=== PATIENT | female | born 1990 | race Caucasian/White ===

== ENCOUNTER 2017-07-21 20:07 | Emergency (ER) | payer OTHER ==
[~2017-07-21] VITALS: Ht 167.6 cm; Wt 55.8 kg
[~2017-07-21 20:07] MED LIST: AMOX500; AZIT250 PO; BCP; BIRTH CONTROL PILLS; CLOM50A PO; CLOT1TC TOP; CODACEE120 PO; DIVA250EC PO; DIVA250ER PO; DOCU100 PO; Doc-Q-Lace100 MG PO; IBUP800 PO; MEDR150I; NAPR500 PO; PERP8 PO; PROM25 PO; QUET100 PO; QUET25 PO; QUET300 PO; RISP1 PO
[2017-07-21] MEDS ORDERED: Verotin-Gr Cap1 EACH PO (21:30)
[2018-04-25] MEDS ORDERED: NICOTINE1 EACH TD (14:39)
[2018-04-25] MEDS ORDERED: Norethindrone0.35 MG PO (14:39)
[2018-04-25] MEDS ORDERED: SERT25 (14:39)
== END 2017-07-21 21:55 | disposition home or self-care (01) ==
LOC: ER 20:07
DX: L74.0 Miliaria rubra (principal); Z88.0 Allergy status to penicillin; F25.9 Schizoaffective disorder, unspecified; Z87.891 Personal history of nicotine dependence
CPT/HCPCS: 99282

== ENCOUNTER → 2017-09-01 | Outpatient (CLI) | payer OTHER ==
[~2017-09-01] MED LIST changes: +Verotin-Gr Cap1 EACH PO
[2017-09-02 10:03] LABS: Source Vaginal/Cervical
== END | disposition home or self-care (01) ==
LOC: LAB SHORT 14:48 → LAB 14:48
PROVIDERS: Advanced Practice Midwife
DX: Z36.89 Encounter for other specified antenatal screening (principal)
CPT/HCPCS: 87491; 87591; 87661; G0123

== ENCOUNTER → 2017-10-04 | Outpatient (CLI) | payer OTHER | END | disposition home or self-care (01) | LOC: LAB SHORT 15:38 → LAB 15:38 | DX: R30.0 Dysuria (principal) | CPT/HCPCS: 87086 ==

== ENCOUNTER 2017-12-06 03:26 | Day surgery (SDC) | payer OTHER ==
[~2017-12-06] VITALS: Ht 167.6 cm; Wt 59.4 kg
== END 2017-12-06 14:25 | disposition home or self-care (01) ==
LOC: ER 03:26 → BC 04:05 → ER 04:11 → BC 04:11 → OBS 04:11 → BC 04:11 → OBS 14:25 → BC 14:25
DX: O9A.313 Physical abuse complicating pregnancy, third trimester (principal); S30.1XXA Contusion of abdominal wall, initial encounter; S40.022A Contusion of left upper arm, initial encounter; S01.511A Laceration without foreign body of lip, initial encounter; Y04.8XXA Assault by other bodily force, initial encounter; Y92.029 Unspecified place in mobile home as the place of occurrence of the external cause; O99.343 Other mental disorders complicating pregnancy, third trimester; Z88.0 Allergy status to penicillin; F25.0 Schizoaffective disorder, bipolar type; O99.333 Smoking (tobacco) complicating pregnancy, third trimester; F17.210 Nicotine dependence, cigarettes, uncomplicated; Z3A.29 29 weeks gestation of pregnancy
CPT/HCPCS: 59025; 81003; 99285-25

== ENCOUNTER 2018-02-05 22:15 | Inpatient (IN) | payer OTHER ==
[~2018-02-05] VITALS: Ht 162.6 cm; Wt 61.4 kg
[2018-02-06 06:19] LABS: BASOPHILS ABSOLUTE AUTO 0.04 K/mm3 (0.00-0.23); BASOPHILS PERCENT AUTO 0 % (0-2); EOSINOPHILS ABSOLUTE AUTO 0.01 K/mm3 (0.00-0.68); EOSINOPHILS PERCENT AUTO 0 % (0-6); Hematocrit 36.4 % (33.0-51.0); Hemoglobin 12.4 g/dL (11.5-16.0); IMMATURE GRAN ABSOLUTE AUTO 0.09 K/mm3 (0.00-0.10); IMMATURE GRAN PERCENT AUTO 1 % (0-1); LYMPHOCYTES ABSOLUTE AUTO 1.38 K/mm3 (0.84-5.20); LYMPHOCYTES PERCENT AUTO 7 % (21-46); MONOCYTES PERCENT AUTO 5 % (4-13); Mean Corpuscular HGB 29.8 pg (26.0-34.0); Mean Corpuscular HGB Conc 34.1 g/dL (31.5-36.5); Mean Corpuscular Volume 88 fL (80-100); Mean Platelet Volume 10.5 fL (9.1-12.4); NEUTROPHILS ABSOLUTE AUTO 16.51 K/mm3 (1.96-9.15); NEUTROPHILS PERCENT AUTO 87 % (41-73); Platelet Count 177 K/mm3 (150-400); RDW Coefficient Variation 13.3 % (11.7-14.2); RDW Standard Deviation 42.3 fL (35.1-46.3); Red Blood Cell Count 4.16 M/mm3 (3.80-5.20); White Blood Cell Count 19.03 K/mm3 (4.00-11.30)
[2018-02-07] MEDS ORDERED: IBUP800 PO (14:53)
== END 2018-02-07 16:40 | disposition home or self-care (01) | DRG 775 ==
LOC: BC 22:15
PROVIDERS: Nurse Practitioner Obstetrics & Gynecology
PROC: 10E0XZZ Delivery of Products of Conception, External Approach (ICD-10-PCS; principal; 2018-02-06)
PROC: 0HQ9XZZ Repair Perineum Skin, External Approach (ICD-10-PCS; 2018-02-06)
PROC: 3E0234Z Introduction of Serum, Toxoid and Vaccine into Muscle, Percutaneous Approach (ICD-10-PCS; 2018-02-07)
DX: O99.334 Smoking (tobacco) complicating childbirth (principal); F17.200 Nicotine dependence, unspecified, uncomplicated; O70.0 First degree perineal laceration during delivery; Z3A.39 39 weeks gestation of pregnancy; Z37.0 Single live birth; Z88.0 Allergy status to penicillin; Z23 Encounter for immunization
CPT/HCPCS: 36415; 85025; 90471; 90707; J1885; J2210; J2590; J7120

== ENCOUNTER → 2018-02-23 | Outpatient (CLI) | payer OTHER | END | disposition home or self-care (01) | LOC: LAB SHORT 17:25 → LAB 17:25 | DX: N89.8 Other specified noninflammatory disorders of vagina (principal) | CPT/HCPCS: 87070; 87205 ==

== ENCOUNTER 2019-02-12 03:36 | Emergency (ER) | payer OTHER ==
[~2019-02-12] VITALS: Ht 167.6 cm; Wt 58.1 kg
[~2019-02-12 03:36] MED LIST changes: +NICOTINE1 EACH TD; +Norethindrone0.35 MG PO; +SERT25
[2019-02-12 04:08] LABS: Source, Urine Clean Catch
[2019-02-12 04:11] LABS: Bilirubin, Urine Neg (Neg); Blood, Urine Neg (Neg); Glucose Qualitative, Urine Neg (Neg); Ketones, Urine Neg (Neg); Leukocyte Esterase, Urine 2+ (Neg); Nitrite, Urine Neg (Neg); Protein, Urine Neg (Neg); Specific Gravity, Urine 1.005 (1.003-1.022); Urobilinogen, Urine NORM (Normal)
[2019-02-12 04:12] LABS: Appearance, Urine Clear (Clear); Color, Urine Yellow (P-Yellow)
[2019-02-12 04:17] LABS: Bacteria Few /hpf; Red Blood Cells, Urine Not Seen /hpf (0-2); Squamous Epithelial Cells Few /hpf (Few); Yeast/Fungi Urine Few /hpf
[2019-02-12 04:59] LABS: BASOPHILS ABSOLUTE AUTO 0.03 K/mm3 (0.00-0.23); BASOPHILS PERCENT AUTO 0 % (0-2); EOSINOPHILS PERCENT AUTO 3 % (0-6); Hematocrit 40.4 % (33.0-51.0); Hemoglobin 13.5 g/dL (11.5-16.0); IMMATURE GRAN ABSOLUTE AUTO 0.03 K/mm3 (0.00-0.10); IMMATURE GRAN PERCENT AUTO 0 % (0-1); LYMPHOCYTES ABSOLUTE AUTO 2.06 K/mm3 (0.84-5.20); LYMPHOCYTES PERCENT AUTO 22 % (21-46); MONOCYTES ABSOLUTE AUTO 0.52 K/mm3 (0.16-1.47); MONOCYTES PERCENT AUTO 6 % (4-13); Mean Corpuscular HGB 29.7 pg (26.0-34.0); Mean Corpuscular HGB Conc 33.4 g/dL (31.5-36.5); Mean Corpuscular Volume 89 fL (80-100); Mean Platelet Volume 10.2 fL (9.1-12.4); NEUTROPHILS PERCENT AUTO 69 % (41-73); Platelet Count 204 K/mm3 (150-400); RDW Coefficient Variation 13.2 % (11.7-14.2); RDW Standard Deviation 43.5 fL (35.1-46.3); Red Blood Cell Count 4.54 M/mm3 (3.80-5.20); White Blood Cell Count 9.44 K/mm3 (4.00-11.30)
[2019-02-12 06:11] LABS: Alanine Aminotransfer (ALT/SGP 15 U/L (12-78); Albumin, Blood 3.8 g/dL (3.4-5.0); Albumin/Globulin Ratio 1.1 (0.8-1.8); Alk Phos 77 U/L (50-136); Anion Gap 6 mmol/L (6-16); Aspartate Aminotrans (AST/SGOT 15 U/L (12-37); Bilirubin, Total 0.4 mg/dL (0.1-1.0); Blood Urea Nitrogen 9 mg/dL (8-24); Bun/Creatinine Ratio 14.2 (12.0-20.0); CO2, Blood 26 mmol/L (21-32); Calcium, Blood 8.9 mg/dL (8.5-10.1); Chloride, Blood 108 mmol/L (98-108); Creatinine, Blood 0.63 mg/dL (0.40-1.00); Globulin, Blood 3.4 g/dL (2.2-4.0); Glomerular Filtration Rate >60 (60-); Glucose, Blood 98 mg/dL (70-99); Potassium, Blood 3.5 mmol/L (3.5-5.5); Sodium, Blood 140 mmol/L (136-145); Total Protein, Blood 7.2 g/dL (6.4-8.2)
[2019-02-12] MEDS ORDERED: Doxycycline Hy100 MG PO (06:11)
== END 2019-02-12 06:28 | disposition home or self-care (01) ==
LOC: ER 03:36
PROVIDERS: Emergency Medicine
DX: T74.11XA Adult physical abuse, confirmed, initial encounter (principal); T71.9XXA Asphyxiation due to unspecified cause, initial encounter; S30.1XXA Contusion of abdominal wall, initial encounter; Y04.8XXA Assault by other bodily force, initial encounter; Z88.0 Allergy status to penicillin; Z87.891 Personal history of nicotine dependence
CPT/HCPCS: 36415; 70498; 74177; 80053; 81001; 81025; 85025; 87086; 96360-59; 99284-25; J7030; Q9967

== ENCOUNTER 2019-04-06 13:29 | Emergency (ER) | payer OTHER ==
[~2019-04-06] VITALS: Ht 167.6 cm; Wt 61.2 kg
[~2019-04-06 13:29] MED LIST changes: +Doxycycline Hy100 MG PO
[2019-04-06 13:49] LABS: Source, Urine Clean Catch
[2019-04-06] MEDS ORDERED: PRENATAL TABLE1 EAC2 PO (13:51)
[2019-04-06 13:54] LABS: Bilirubin, Urine Neg (Neg); Blood, Urine 5+ (Neg); Glucose Qualitative, Urine Neg (Neg); Ketones, Urine Neg (Neg); Leukocyte Esterase, Urine 3+ (Neg); Nitrite, Urine Neg (Neg); Protein, Urine Neg (Neg); Specific Gravity, Urine 1.005 (1.003-1.022); Urobilinogen, Urine NORM (Normal)
[2019-04-06 14:03] LABS: BASOPHILS ABSOLUTE AUTO 0.03 K/mm3 (0.00-0.23); BASOPHILS PERCENT AUTO 0 % (0-2); EOSINOPHILS ABSOLUTE AUTO 0.05 K/mm3 (0.00-0.68); EOSINOPHILS PERCENT AUTO 1 % (0-6); Hematocrit 43.4 % (33.0-51.0); Hemoglobin 14.6 g/dL (11.5-16.0); IMMATURE GRAN ABSOLUTE AUTO 0.03 K/mm3 (0.00-0.10); IMMATURE GRAN PERCENT AUTO 0 % (0-1); LYMPHOCYTES ABSOLUTE AUTO 1.61 K/mm3 (0.84-5.20); LYMPHOCYTES PERCENT AUTO 16 % (21-46); MONOCYTES ABSOLUTE AUTO 0.57 K/mm3 (0.16-1.47); MONOCYTES PERCENT AUTO 6 % (4-13); Mean Corpuscular HGB Conc 33.6 g/dL (31.5-36.5); Mean Corpuscular Volume 89 fL (80-100); Mean Platelet Volume 10.2 fL (9.1-12.4); NEUTROPHILS ABSOLUTE AUTO 7.91 K/mm3 (1.96-9.15); NEUTROPHILS PERCENT AUTO 78 % (41-73); Platelet Count 218 K/mm3 (150-400); RDW Coefficient Variation 12.6 % (11.7-14.2); RDW Standard Deviation 41.6 fL (35.1-46.3); Red Blood Cell Count 4.86 M/mm3 (3.80-5.20)
[2019-04-06 14:05] LABS: Appearance, Urine Clear (Clear); Color, Urine Yellow (P-Yellow)
[2019-04-06 14:09] LABS: Bacteria Few /hpf; Squamous Epithelial Cells Mod /hpf (Few)
[2019-04-06 14:47] LABS: Alanine Aminotransfer (ALT/SGP 16 U/L (12-78); Albumin, Blood 3.8 g/dL (3.4-5.0); Alk Phos 83 U/L (50-136); Anion Gap 8 mmol/L (6-16); Aspartate Aminotrans (AST/SGOT 9 U/L (12-37); Bilirubin, Total 0.3 mg/dL (0.1-1.0); Blood Urea Nitrogen 6 mg/dL (8-24); Bun/Creatinine Ratio 9.2 (12.0-20.0); CO2, Blood 22 mmol/L (21-32); Chloride, Blood 108 mmol/L (98-108); Creatinine, Blood 0.66 mg/dL (0.40-1.00); Glomerular Filtration Rate >60 (60-); Glucose, Blood 95 mg/dL (70-99); Potassium, Blood 3.5 mmol/L (3.5-5.5); Sodium, Blood 138 mmol/L (136-145); Total Protein, Blood 7.8 g/dL (6.4-8.2)
[2019-04-06 15:11] LABS: Beta HCG, Quantitative, Serum 19160 mIU/mL (0-3)
== END 2019-04-06 15:29 | disposition home or self-care (01) ==
LOC: ER 13:29
PROVIDERS: Physician Assistant
DX: O20.9 Hemorrhage in early pregnancy, unspecified (principal); O99.341 Other mental disorders complicating pregnancy, first trimester; F20.9 Schizophrenia, unspecified; Z3A.01 Less than 8 weeks gestation of pregnancy
CPT/HCPCS: 36415; 76801; 76817; 80053; 81001; 81025; 84702; 85025; 86900; 86901; 87086

== ENCOUNTER → 2019-04-10 | Outpatient (CLI) | payer OTHER ==
[~2019-04-10] MED LIST changes: +PRENATAL TABLE1 EAC2 PO
[2019-04-10 19:49] LABS: Progesterone 5.51 ng/mL
== END | disposition home or self-care (01) ==
LOC: LAB 15:05 → LAB SHORT 15:05
PROVIDERS: Obstetrics & Gynecology
DX: O02.1 Missed abortion (principal)
CPT/HCPCS: 84144; 84702

== ENCOUNTER 2019-04-12 15:59 | Emergency (ER) | payer OTHER ==
[~2019-04-12] VITALS: Ht 167.6 cm; Wt 59.9 kg
[2019-04-12 18:25] LABS: BASOPHILS ABSOLUTE AUTO 0.05 K/mm3 (0.00-0.23); BASOPHILS PERCENT AUTO 0 % (0-2); EOSINOPHILS ABSOLUTE AUTO 0.06 K/mm3 (0.00-0.68); EOSINOPHILS PERCENT AUTO 1 % (0-6); Hematocrit 46.5 % (33.0-51.0); Hemoglobin 15.5 g/dL (11.5-16.0); IMMATURE GRAN ABSOLUTE AUTO 0.02 K/mm3 (0.00-0.10); IMMATURE GRAN PERCENT AUTO 0 % (0-1); LYMPHOCYTES ABSOLUTE AUTO 1.88 K/mm3 (0.84-5.20); LYMPHOCYTES PERCENT AUTO 17 % (21-46); MONOCYTES ABSOLUTE AUTO 0.51 K/mm3 (0.16-1.47); MONOCYTES PERCENT AUTO 5 % (4-13); Mean Corpuscular HGB 29.8 pg (26.0-34.0); Mean Corpuscular HGB Conc 33.3 g/dL (31.5-36.5); Mean Corpuscular Volume 89 fL (80-100); Mean Platelet Volume 9.9 fL (9.1-12.4); NEUTROPHILS ABSOLUTE AUTO 8.61 K/mm3 (1.96-9.15); NEUTROPHILS PERCENT AUTO 77 % (41-73); Platelet Count 237 K/mm3 (150-400); RDW Coefficient Variation 12.6 % (11.7-14.2); RDW Standard Deviation 41.1 fL (35.1-46.3); Red Blood Cell Count 5.21 M/mm3 (3.80-5.20); White Blood Cell Count 11.13 K/mm3 (4.00-11.30)
[2019-04-12 18:42] LABS: Source, Urine Clean Catch
[2019-04-12 18:47] LABS: Bilirubin, Urine Neg (Neg); Blood, Urine 5+ (Neg); Color, Urine Yellow (P-Yellow); Glucose Qualitative, Urine Neg (Neg); Ketones, Urine Neg (Neg); Leukocyte Esterase, Urine 2+ (Neg); Nitrite, Urine Neg (Neg); Protein, Urine Neg (Neg); Specific Gravity, Urine 1.015 (1.003-1.022); Urobilinogen, Urine NORM (Normal)
[2019-04-12 18:51] LABS: Alanine Aminotransfer (ALT/SGP 14 U/L (12-78); Albumin, Blood 4.3 g/dL (3.4-5.0); Alk Phos 85 U/L (50-136); Anion Gap 7 mmol/L (6-16); Aspartate Aminotrans (AST/SGOT 10 U/L (12-37); Bilirubin, Total 0.4 mg/dL (0.1-1.0); Blood Urea Nitrogen 7 mg/dL (8-24); Bun/Creatinine Ratio 12.7 (12.0-20.0); CO2, Blood 23 mmol/L (21-32); Calcium, Blood 9.2 mg/dL (8.5-10.1); Chloride, Blood 107 mmol/L (98-108); Creatinine, Blood 0.55 mg/dL (0.40-1.00); Globulin, Blood 4.2 g/dL (2.2-4.0); Glomerular Filtration Rate >60 (60-); Glucose, Blood 109 mg/dL (70-99); Potassium, Blood 3.5 mmol/L (3.5-5.5); Sodium, Blood 137 mmol/L (136-145); Total Protein, Blood 8.5 g/dL (6.4-8.2)
[2019-04-12 19:04] LABS: Appearance, Urine Hazy (Clear)
[2019-04-12 19:05] LABS: Red Blood Cells, Urine 50-100 /hpf (0-2)
[2019-04-12 19:06] LABS: Bacteria Few /hpf; Mucus Light (0-Heavy); Squamous Epithelial Cells Few /hpf (Few)
[2019-04-12 19:21] LABS: Beta HCG, Quantitative, Serum 13364 mIU/mL (0-3)
== END 2019-04-12 19:53 | disposition home or self-care (01) ==
LOC: ER 15:59
PROVIDERS: Physician Assistant
DX: O03.4 Incomplete spontaneous abortion without complication (principal); F17.200 Nicotine dependence, unspecified, uncomplicated; Z88.0 Allergy status to penicillin; Z3A.01 Less than 8 weeks gestation of pregnancy
CPT/HCPCS: 36415; 76801; 76817; 80053; 81001; 84702; 85025; 87086; J7030

== ENCOUNTER 2019-04-13 12:57 | Observation (INO) | payer OTHER ==
[~2019-04-13] VITALS: Ht 167.6 cm; Wt 59.9 kg
[2019-04-13 13:45] LABS: Calcium, Ionized (POC) 1.19 mmol/L (1.10-1.46); Chloride (POC) 106 mmol/L (98-108); Creatinine (POC) 0.7 mg/dL (0.6-1.0); Glucose (ISTAT POC) 92 mg/dL (70-99); Hemoglobin (POC) 11.6 g/dL (12.0-16.0); Potassium (POC) 3.8 mmol/L (3.5-5.5); Sodium (POC) 140 mmol/L (135-148); Total CO2 (POC) 24 mmol/L (21-32)
[2019-04-13 16:22] LABS: BASOPHILS ABSOLUTE AUTO 0.03 K/mm3 (0.00-0.23); BASOPHILS PERCENT AUTO 0 % (0-2); EOSINOPHILS ABSOLUTE AUTO 0.18 K/mm3 (0.00-0.68); EOSINOPHILS PERCENT AUTO 1 % (0-6); Hematocrit 30.5 % (33.0-51.0); Hemoglobin 10.3 g/dL (11.5-16.0); IMMATURE GRAN ABSOLUTE AUTO 0.04 K/mm3 (0.00-0.10); IMMATURE GRAN PERCENT AUTO 0 % (0-1); LYMPHOCYTES ABSOLUTE AUTO 2.25 K/mm3 (0.84-5.20); LYMPHOCYTES PERCENT AUTO 17 % (21-46); MONOCYTES ABSOLUTE AUTO 0.74 K/mm3 (0.16-1.47); MONOCYTES PERCENT AUTO 6 % (4-13); Mean Corpuscular HGB 30.2 pg (26.0-34.0); Mean Corpuscular HGB Conc 33.8 g/dL (31.5-36.5); Mean Corpuscular Volume 89 fL (80-100); Mean Platelet Volume 10.4 fL (9.1-12.4); NEUTROPHILS ABSOLUTE AUTO 10.23 K/mm3 (1.96-9.15); NEUTROPHILS PERCENT AUTO 76 % (41-73); Platelet Count 197 K/mm3 (150-400); RDW Coefficient Variation 12.6 % (11.7-14.2); RDW Standard Deviation 41.1 fL (35.1-46.3); Red Blood Cell Count 3.41 M/mm3 (3.80-5.20); White Blood Cell Count 13.47 K/mm3 (4.00-11.30)
[2019-04-13 16:37] LABS: Anion Gap 5 mmol/L (6-16); Blood Urea Nitrogen 7 mg/dL (8-24); CO2, Blood 24 mmol/L (21-32); Calcium, Blood 8.2 mg/dL (8.5-10.1); Chloride, Blood 111 mmol/L (98-108); Creatinine, Blood 0.64 mg/dL (0.40-1.00); Glomerular Filtration Rate >60 (60-); Glucose, Blood 88 mg/dL (70-99); Sodium, Blood 140 mmol/L (136-145)
[2019-04-14 03:13] LABS: BASOPHILS ABSOLUTE AUTO 0.04 K/mm3 (0.00-0.23); BASOPHILS PERCENT AUTO 0 % (0-2); EOSINOPHILS ABSOLUTE AUTO 0.29 K/mm3 (0.00-0.68); EOSINOPHILS PERCENT AUTO 3 % (0-6); Hematocrit 27.6 % (33.0-51.0); Hemoglobin 9.2 g/dL (11.5-16.0); IMMATURE GRAN ABSOLUTE AUTO 0.04 K/mm3 (0.00-0.10); IMMATURE GRAN PERCENT AUTO 0 % (0-1); LYMPHOCYTES ABSOLUTE AUTO 2.52 K/mm3 (0.84-5.20); LYMPHOCYTES PERCENT AUTO 26 % (21-46); MONOCYTES ABSOLUTE AUTO 0.75 K/mm3 (0.16-1.47); MONOCYTES PERCENT AUTO 8 % (4-13); Mean Corpuscular HGB 30.5 pg (26.0-34.0); Mean Corpuscular HGB Conc 33.3 g/dL (31.5-36.5); Mean Corpuscular Volume 91 fL (80-100); Mean Platelet Volume 10.2 fL (9.1-12.4); NEUTROPHILS ABSOLUTE AUTO 6.18 K/mm3 (1.96-9.15); NEUTROPHILS PERCENT AUTO 63 % (41-73); Platelet Count 181 K/mm3 (150-400); RDW Coefficient Variation 12.6 % (11.7-14.2); Red Blood Cell Count 3.02 M/mm3 (3.80-5.20); White Blood Cell Count 9.82 K/mm3 (4.00-11.30)
--- NOTE | 2019-04-14 03:50 | NUR ---
PT BP 86/46 MAP 59 HEART RATE 79. PT ASYMPTOMATIC. CONTINUES WITH MOD VAG BLEED AND NO CLOTS NOTED. HAVING INCREASED ABD CRAMPING REQUIRING PAIN MEDS. PT WITH ORDERS FOR AM LABS,WHICH I CALLED FOR EARLY.I CALLED DR BOOTH AND NOTIFIED OF ABOVE WELL H&H 9.2/27.6. 500 ML IV BOLUS ORDERED,WITH SECOND BOLUS ORDERED X 1 PRN PER BP PARAMETERS 1 HR AFTER COMPLETION OF FIRST BOLUS.
--- NOTE | 2019-04-14 04:43 | NUR ---
ATTEMPT FOR IV START DUE TO PAIN AT PREVIOUS SITE.PT INTOLERANT TO 18G UNABLE TO OBTAIN IV. PT TEARFUL.PT STATING CAN NOT TOLERATE FURTHER IV ATTEMPT UNLESS CAN TAKE A SHORT BREAK. NURSE JADIEL WALKING WITH PT AND WILL ATTEMPT IV WITH RETURN TO ROOM.
--- NOTE | 2019-04-14 06:01 | NUR ---
SUMMARY IV SITE OBTAINED AND BOLUS STARTED PER JADIEL FRY @4433.
--- NOTE | 2019-04-14 07:59 | NUR ---
2ND BOLUS OF 500ML NS STARTED AT THIS TIME
--- NOTE | 2019-04-14 14:19 | NUR ---
PT LEFT UNIT TO SMOKE AT ABOUT 1400. PT NOW BACK IN ROOM WITH MOM
--- NOTE | 2019-04-14 14:59 | NUR ---
PT TO OR AT THIS TIME
--- NOTE | 2019-04-14 15:38 | NUR ---
NO ACUTE CHANGES IN PACU TO OR PER BED WITH OR STAF
--- NOTE | 2019-04-14 16:02 | NUR ---
04/14/19 1602 Nicole Crowell METHERGINE GIVEN BY ANESTHESIA AT 1600.
[2019-04-14] MEDS ORDERED: Percocet 5-3251 EACH PO (17:36)
[2019-04-14] MEDS ORDERED: PROM25 PO (17:37)
[2019-04-14] MEDS ORDERED: IBUP400 PO (17:37)
--- NOTE | 2019-04-14 19:13 | NUR ---
POST OP: REPORT RECIEVED FROM TIE BUYER. PT TO UNIT AT ABOUT 1650. PT IS A/O, VSS, DENIES PAIN AND ASKING FOR FOOD. SCANT VAGINAL BLEED. WILL CTM
--- NOTE | 2019-04-14 19:15 | NUR ---
SUMMARY AND DISCHARGE PLAN: PT STABLE POST OP. VSS, PT ABLE TO TOLERATE FOOD AND UP TO VOID. DENIES PAIN/NAUSEA. PER DR. BOOTH, PT ABLE TO DISCHARGE. PACKET PRINTED, PT AND PT MOM EDUCATED. SCRIPT WITH PT, PT TO DISCHARGE AFTER LAST POST OP VS. REPORT GIVEN TO LISANDRA DE LA CRUZ.
== END 2019-04-14 20:00 | disposition home or self-care (01) ==
LOC: ER 12:57 → SURS 15:51 → ER 15:51 → SURS 15:51
PROVIDERS: Emergency Medicine; ADMIT Obstetrics & Gynecology
PROC: 10D17ZZ Extraction of Products of Conception, Retained, Via Natural or Artificial Opening (ICD-10-PCS; principal; 2019-04-14 14:30)
DX: O03.4 Incomplete spontaneous abortion without complication (principal); Z88.0 Allergy status to penicillin; Z88.8 Allergy status to other drugs, medicaments and biological substances
CPT/HCPCS: 36415; 76830; 76857; 80047; 80048; 84702; 85014; 85025; 86850; 86900; 86901; 96361; 96374; 96375; 99285-25; J1100; J1885; J2210; J2250; J2370; J2405; J2704; J3010; J7030; J7040; J7120

== ENCOUNTER → 2019-04-30 | Outpatient (CLI) | payer OTHER ==
[~2019-04-30] MED LIST changes: +IBUP400 PO; +LARIN1 EACH PO; +Percocet 5-3251 EACH PO
[2019-05-03 04:07] LABS: CHLAMYDIA TRACHOMATIS, NAA Negative (Negative); NEISSERIA GONORRHOEAE, NAA Negative (Negative)
== END | disposition home or self-care (01) ==
LOC: LAB 14:49 → LAB SHORT 14:49
PROVIDERS: Obstetrics & Gynecology
DX: N89.8 Other specified noninflammatory disorders of vagina (principal); Z20.2 Contact with and (suspected) exposure to infections with a predominantly sexual mode of transmission
CPT/HCPCS: 87070; 87205; 87491; 87591

== ENCOUNTER 2019-07-07 22:20 | Emergency (ER) | payer OTHER ==
[~2019-07-07] VITALS: Ht 167.6 cm; Wt 54.4 kg
[~2019-07-07 22:20] MED LIST changes: -LARIN1 EACH PO
[2019-07-07 23:03] LABS: BASOPHILS ABSOLUTE AUTO 0.05 K/mm3 (0.00-0.23); BASOPHILS PERCENT AUTO 1 % (0-2); EOSINOPHILS ABSOLUTE AUTO 0.22 K/mm3 (0.00-0.68); EOSINOPHILS PERCENT AUTO 2 % (0-6); Hematocrit 46.5 % (33.0-51.0); Hemoglobin 14.7 g/dL (11.5-16.0); IMMATURE GRAN ABSOLUTE AUTO 0.02 K/mm3 (0.00-0.10); IMMATURE GRAN PERCENT AUTO 0 % (0-1); LYMPHOCYTES ABSOLUTE AUTO 3.05 K/mm3 (0.84-5.20); LYMPHOCYTES PERCENT AUTO 33 % (21-46); MONOCYTES ABSOLUTE AUTO 0.78 K/mm3 (0.16-1.47); MONOCYTES PERCENT AUTO 9 % (4-13); Mean Corpuscular HGB 27.2 pg (26.0-34.0); Mean Corpuscular HGB Conc 31.6 g/dL (31.5-36.5); Mean Corpuscular Volume 86 fL (80-100); Mean Platelet Volume 10.5 fL (9.1-12.4); NEUTROPHILS ABSOLUTE AUTO 5.04 K/mm3 (1.96-9.15); NEUTROPHILS PERCENT AUTO 55 % (41-73); Platelet Count 302 K/mm3 (150-400); RDW Coefficient Variation 13.5 % (11.7-14.2); Red Blood Cell Count 5.41 M/mm3 (3.80-5.20); White Blood Cell Count 9.16 K/mm3 (4.00-11.30)
[2019-07-07 23:25] LABS: Alanine Aminotransfer (ALT/SGP 19 U/L (12-78); Albumin, Blood 4.3 g/dL (3.4-5.0); Alk Phos 108 U/L (50-136); Anion Gap 8 mmol/L (6-16); Aspartate Aminotrans (AST/SGOT 19 U/L (12-37); Bilirubin, Total 0.3 mg/dL (0.1-1.0); Blood Urea Nitrogen 8 mg/dL (8-24); Bun/Creatinine Ratio 10.5 (12.0-20.0); CO2, Blood 23 mmol/L (21-32); Calcium, Blood 9.3 mg/dL (8.5-10.1); Chloride, Blood 108 mmol/L (98-108); Creatinine, Blood 0.77 mg/dL (0.40-1.00); Globulin, Blood 4.5 g/dL (2.2-4.0); Glomerular Filtration Rate >60 (60-); Glucose, Blood 86 mg/dL (70-99); Potassium, Blood 3.8 mmol/L (3.5-5.5); Sodium, Blood 139 mmol/L (136-145); Total Protein, Blood 8.8 g/dL (6.4-8.2)
[2019-07-07] MEDS ORDERED: LARIN1 EACH PO (23:57)
[2019-07-08 00:53] LABS: Source, Urine Clean Catch
[2019-07-08 00:55] LABS: Bilirubin, Urine Neg (Neg); Blood, Urine Neg (Neg); Glucose Qualitative, Urine Neg (Neg); Ketones, Urine Neg (Neg); Leukocyte Esterase, Urine 1+ (Neg); Nitrite, Urine Neg (Neg); Protein, Urine Neg (Neg); Urobilinogen, Urine NORM (Normal)
[2019-07-08 01:00] LABS: Appearance, Urine Clear (Clear); Color, Urine Yellow (P-Yellow)
[2019-07-08 01:01] LABS: Bacteria Few /hpf; Red Blood Cells, Urine 0-2 /hpf (0-2); Squamous Epithelial Cells Few /hpf (Few)
== END 2019-07-08 01:34 | disposition home or self-care (01) ==
LOC: ER 22:20
PROVIDERS: Emergency Medicine; Physician Assistant
DX: B37.3 Candidiasis of vulva and vagina (principal); F31.9 Bipolar disorder, unspecified; F20.9 Schizophrenia, unspecified; F17.200 Nicotine dependence, unspecified, uncomplicated; Z88.0 Allergy status to penicillin; Z88.8 Allergy status to other drugs, medicaments and biological substances; Z79.899 Other long term (current) drug therapy
CPT/HCPCS: 36415; 76830; 76856; 80053; 81001; 81025; 85025; 87086; 99284-25

== ENCOUNTER → 2019-07-16 | Outpatient (CLI) | payer OTHER ==
[~2019-07-16] MED LIST changes: +LARIN1 EACH PO
== END | disposition home or self-care (01) ==
LOC: LAB EV 14:27 → LAB SHORT 14:27
DX: R21 Rash and other nonspecific skin eruption (principal); Z72.51 High risk heterosexual behavior
CPT/HCPCS: 87529

== ENCOUNTER → 2019-08-03 | Outpatient (CLI) | payer OTHER ==
[2019-08-03 14:51] LABS: BASOPHILS ABSOLUTE AUTO 0.02 K/mm3 (0.00-0.23); BASOPHILS PERCENT AUTO 0 % (0-2); EOSINOPHILS ABSOLUTE AUTO 0.14 K/mm3 (0.00-0.68); EOSINOPHILS PERCENT AUTO 2 % (0-6); Hematocrit 41.4 % (33.0-51.0); Hemoglobin 13.5 g/dL (11.5-16.0); IMMATURE GRAN ABSOLUTE AUTO 0.01 K/mm3 (0.00-0.10); IMMATURE GRAN PERCENT AUTO 0 % (0-1); LYMPHOCYTES ABSOLUTE AUTO 2.07 K/mm3 (0.84-5.20); LYMPHOCYTES PERCENT AUTO 36 % (21-46); MONOCYTES ABSOLUTE AUTO 0.43 K/mm3 (0.16-1.47); MONOCYTES PERCENT AUTO 7 % (4-13); Mean Corpuscular HGB 27.6 pg (26.0-34.0); Mean Corpuscular HGB Conc 32.6 g/dL (31.5-36.5); Mean Corpuscular Volume 85 fL (80-100); NEUTROPHILS ABSOLUTE AUTO 3.15 K/mm3 (1.96-9.15); NEUTROPHILS PERCENT AUTO 54 % (41-73); RDW Coefficient Variation 15.6 % (11.7-14.2); RDW Standard Deviation 47.5 fL (35.1-46.3); Red Blood Cell Count 4.89 M/mm3 (3.80-5.20); White Blood Cell Count 5.82 K/mm3 (4.00-11.30)
[2019-08-03 15:14] LABS: Mean Platelet Volume 11.6 fL (9.1-12.4)
[2019-08-03 15:19] LABS: Thyroid Stimulating Hormone 2.222 uIU/mL (0.360-4.800)
[2019-08-03 15:22] LABS: Troponin I <0.017 ng/mL (0.000-0.040)
[2019-08-03 16:05] LABS: Platelet Count 216 K/mm3 (150-400)
== END | disposition home or self-care (01) ==
LOC: LAB SHORT 14:43 → LAB EV 14:43
PROVIDERS: General Practice
DX: R07.9 Chest pain, unspecified (principal); R53.81 Other malaise
CPT/HCPCS: 84443; 84484; 85025

== ENCOUNTER 2019-08-04 17:49 | Emergency (ER) | payer OTHER ==
[~2019-08-04] VITALS: Ht 167.6 cm; Wt 57.6 kg
== END 2019-08-04 18:20 | disposition home or self-care (01) ==
LOC: ER 17:49
DX: S61.216A Laceration without foreign body of right little finger without damage to nail, initial encounter (principal); F20.9 Schizophrenia, unspecified; F31.9 Bipolar disorder, unspecified; F17.210 Nicotine dependence, cigarettes, uncomplicated; Z79.899 Other long term (current) drug therapy; W26.8XXA Contact with other sharp object(s), not elsewhere classified, initial encounter
CPT/HCPCS: 99282

== ENCOUNTER → 2019-11-29 | Outpatient (CLI) | payer OTHER ==
[2019-11-30 10:13] LABS: Candida species (DNA Probe) Positive (NEGATIVE); G. vaginalis (DNA Probe) Negative (NEGATIVE); T. vaginalis (DNA Probe) Negative (NEGATIVE)
[2019-12-02 08:10] LABS: CHLAMYDIA TRACHOMATIS, NAA Negative (Negative); NEISSERIA GONORRHOEAE, NAA Negative (Negative)
== END | disposition home or self-care (01) ==
LOC: LAB 16:34 → LAB SHORT 16:34
PROVIDERS: Obstetrics & Gynecology
DX: Z11.3 Encounter for screening for infections with a predominantly sexual mode of transmission (principal); N76.0 Acute vaginitis
CPT/HCPCS: 87480; 87491; 87510; 87591; 87660

== ENCOUNTER 2020-03-27 20:07 | Observation (INO) | payer OTHER ==
[~2020-03-27] VITALS: Ht 160 cm; Wt 64.4 kg
[2020-03-27 21:28] LABS: BASOPHILS ABSOLUTE AUTO 0.03 K/mm3 (0.00-0.23); BASOPHILS PERCENT AUTO 0 % (0-2); EOSINOPHILS ABSOLUTE AUTO 0.01 K/mm3 (0.00-0.68); EOSINOPHILS PERCENT AUTO 0 % (0-6); Hematocrit 37.9 % (33.0-51.0); Hemoglobin 12.3 g/dL (11.5-16.0); IMMATURE GRAN ABSOLUTE AUTO 0.09 K/mm3 (0.00-0.10); IMMATURE GRAN PERCENT AUTO 1 % (0-1); LYMPHOCYTES ABSOLUTE AUTO 0.84 K/mm3 (0.84-5.20); LYMPHOCYTES PERCENT AUTO 5 % (21-46); MONOCYTES ABSOLUTE AUTO 1.04 K/mm3 (0.16-1.47); MONOCYTES PERCENT AUTO 6 % (4-13); Mean Corpuscular HGB 27.5 pg (26.0-34.0); Mean Corpuscular HGB Conc 32.5 g/dL (31.5-36.5); Mean Corpuscular Volume 85 fL (80-100); Mean Platelet Volume 10.2 fL (9.1-12.4); NEUTROPHILS PERCENT AUTO 88 % (41-73); Platelet Count 198 K/mm3 (150-400); RDW Coefficient Variation 14.2 % (11.7-14.2); RDW Standard Deviation 43.8 fL (35.1-46.3); Red Blood Cell Count 4.48 M/mm3 (3.80-5.20); White Blood Cell Count 16.61 K/mm3 (4.00-11.30)
[2020-03-27 21:49] LABS: Alanine Aminotransfer (ALT/SGP 15 U/L (12-78); Albumin, Blood 2.7 g/dL (3.4-5.0); Albumin/Globulin Ratio 0.6 (0.8-1.8); Alk Phos 95 U/L (50-136); Anion Gap 5 mmol/L (6-16); Aspartate Aminotrans (AST/SGOT 15 U/L (12-37); Bilirubin, Total 0.3 mg/dL (0.1-1.0); Blood Urea Nitrogen 8 mg/dL (8-24); Bun/Creatinine Ratio 12.9 (12.0-20.0); CO2, Blood 26 mmol/L (21-32); Calcium, Blood 8.9 mg/dL (8.5-10.1); Chloride, Blood 100 mmol/L (98-108); Creatinine, Blood 0.62 mg/dL (0.40-1.00); Globulin, Blood 4.4 g/dL (2.2-4.0); Glomerular Filtration Rate >60 (60-); Glucose, Blood 83 mg/dL (70-99); Potassium, Blood 3.7 mmol/L (3.5-5.5); Sodium, Blood 131 mmol/L (136-145); Total Protein, Blood 7.1 g/dL (6.4-8.2)
[2020-03-27 22:19] LABS: U Amphetamine Screen Not Detected; U Barbituate Screen Not Detected; U Benzodiazapine Screen Not Detected; U Buprenorphine Screen Not Detected; U Cannabinoids Screen Not Detected; U Cocaine Screen Not Detected; U Methadone Screen Not Detected; U Methamphetamine Screen Not Detected; U Opiates Screen Not Detected; U Oxycodone Screen Not Detected; U Phencyclidine Screen Not Detected; U Propoxyphene Screen Not Detected
[2020-03-28] MEDS ORDERED: CLIN150 PO (00:06)
--- NOTE | 2020-03-28 09:03 | NUR ---
ASSUMED CARE OF PATIENT SLEEPING QUIETLY, WOKE PATIENT FOR ASSESSMENT. DR SAMUEL IN TO SEE PATIENT AND ORDERS RECEIVED
[2020-03-28 09:50] LABS: BASOPHILS ABSOLUTE AUTO 0.02 K/mm3 (0.00-0.23); BASOPHILS PERCENT AUTO 0 % (0-2); EOSINOPHILS ABSOLUTE AUTO 0.01 K/mm3 (0.00-0.68); EOSINOPHILS PERCENT AUTO 0 % (0-6); Hematocrit 33.8 % (33.0-51.0); Hemoglobin 10.8 g/dL (11.5-16.0); IMMATURE GRAN ABSOLUTE AUTO 0.09 K/mm3 (0.00-0.10); IMMATURE GRAN PERCENT AUTO 1 % (0-1); LYMPHOCYTES ABSOLUTE AUTO 0.83 K/mm3 (0.84-5.20); LYMPHOCYTES PERCENT AUTO 5 % (21-46); MONOCYTES ABSOLUTE AUTO 0.79 K/mm3 (0.16-1.47); MONOCYTES PERCENT AUTO 5 % (4-13); Mean Corpuscular HGB 26.9 pg (26.0-34.0); Mean Corpuscular Volume 84 fL (80-100); Mean Platelet Volume 10.2 fL (9.1-12.4); NEUTROPHILS PERCENT AUTO 89 % (41-73); Platelet Count 182 K/mm3 (150-400); Red Blood Cell Count 4.02 M/mm3 (3.80-5.20); White Blood Cell Count 15.74 K/mm3 (4.00-11.30)
[2020-03-28 16:11] LABS: Source, Urine Clean Catch
[2020-03-28 16:18] LABS: Appearance, Urine Clear (Clear); Bilirubin, Urine Neg (Neg); Blood, Urine Neg (Neg); Color, Urine Yellow (P-Yellow); Glucose Qualitative, Urine Neg (Neg); Ketones, Urine Neg (Neg); Leukocyte Esterase, Urine 1+ (Neg); Nitrite, Urine Neg (Neg); Protein, Urine Neg (Neg); Urobilinogen, Urine NORM (Normal)
[2020-03-28 16:35] LABS: Bacteria Few /hpf; Red Blood Cells, Urine 0-2 /hpf (0-2); Squamous Epithelial Cells Mod /hpf (Few); Transitional Epithelial Cells Few /hpf (0-Rare); Yeast/Fungi Urine Few /hpf
--- NOTE | 2020-03-28 17:27 | NUR ---
1000 reports ongoing abdominal pain . patient is polite and cooperates with staff. s/o at bedside. helping patient and supportive
--- NOTE | 2020-03-28 17:28 | NUR ---
1200 ATTEMPTING TO EAT SMALL BITS OF FOOD. ENCOURAGED HER TO EAT SLOWLY TO AVOID NAUSEA. SHE STATES, " THAT'S WHAT HAPPENED LAST TIME, I SCARFED 1 SANDWICH AND THEN PUKED IT BACK UP AN HOUR LATER"
--- NOTE | 2020-03-28 17:29 | NUR ---
1400 SLEEPING S/O IN BED NEXT TO PATIENT TRYING TO COMFORT HER. HE ENCOURAGED HER NOT TO HAVE SO MANY BLANKETS ON EVEN THOUGH SHE IS SHIVERING FROM HER FEVER
--- NOTE | 2020-03-28 17:31 | NUR ---
1600 PATIENT FEELING BETTER. ABLE TO EAT HALF OF HER MEAL, REQUESTED SOFT DIET BECAUSE OF HER BAD TEETH. PATIENT AND S/O UNDERSTAND THAT SHE NEEDS TO STAY ANOTHER NIGHT FOR THE IV ANTIBIOTICS. BOTHE OF THEM ARE WILLING TO TO WHAT EVER IS NECESSARY FOR THE HEALTHOF MOM AND BABY
--- NOTE | 2020-03-28 17:33 | NUR ---
1700 OOB TO SHOWER, TOLERATED WELL
[2020-03-28 21:39] LABS: BASOPHILS ABSOLUTE AUTO 0.04 K/mm3 (0.00-0.23); BASOPHILS PERCENT AUTO 0 % (0-2); EOSINOPHILS ABSOLUTE AUTO 0.02 K/mm3 (0.00-0.68); EOSINOPHILS PERCENT AUTO 0 % (0-6); Hematocrit 33.1 % (33.0-51.0); Hemoglobin 10.9 g/dL (11.5-16.0); IMMATURE GRAN PERCENT AUTO 1 % (0-1); LYMPHOCYTES PERCENT AUTO 8 % (21-46); MONOCYTES ABSOLUTE AUTO 0.86 K/mm3 (0.16-1.47); MONOCYTES PERCENT AUTO 7 % (4-13); Mean Corpuscular HGB 27.7 pg (26.0-34.0); Mean Corpuscular HGB Conc 32.9 g/dL (31.5-36.5); Mean Corpuscular Volume 84 fL (80-100); Mean Platelet Volume 9.9 fL (9.1-12.4); NEUTROPHILS ABSOLUTE AUTO 11.05 K/mm3 (1.96-9.15); NEUTROPHILS PERCENT AUTO 84 % (41-73); Platelet Count 176 K/mm3 (150-400); RDW Coefficient Variation 14.1 % (11.7-14.2); RDW Standard Deviation 43.5 fL (35.1-46.3); Red Blood Cell Count 3.94 M/mm3 (3.80-5.20); White Blood Cell Count 13.07 K/mm3 (4.00-11.30)
--- NOTE | 2020-03-29 08:45 | NUR ---
PT AWAKEN TO INFORM HER THAT HER BREAKFAST TRAY IS HERE INCASE SHE WANTED TO EAT BEFORE IT GETS COLD. PT DESIRES TO GET UP AND TAKE A SHOWER PRIOR TO ANY MOINTORING. DISCUSSED NEEDING TO COLLECT STOOL SAMPLE PER ORDERS THEY STAND NOW. PT REPORTS SHE DIDN'T BELIEVE THEY WERE GOING TO COLLECT THAT AND THAT THAT ORDER HAD BEEN CANCELLED YESTERDAY. DISCUSSED THAT WE WOULD CLARIFY WITH DR WHEN DR DOES ROUNDS TODAY. IN MEAN TIME PT TO NOTIFY RN IF SHE HAS A BM. TOWELS GIVEN SO PATIENT COULD SHOWER. PT DECLINES ANY PAIN AT THIS TIME. PT IN BED WITH S.O. NO OTHER COMPLAINTS. PT TO NOTIFY RN WHEN SHE IS BACK TO BED FOR DAILY NST
--- NOTE | 2020-03-29 09:31 | NUR ---
PT IN SHOWER.
[2020-03-30] MEDS ORDERED: CEFD300 PO (07:31)
== END 2020-03-29 11:27 | disposition home or self-care (01) ==
LOC: OBS 20:07 → BC 20:16 → OBS 21:39 → BC 21:46
PROVIDERS: Obstetrics & Gynecology; ADMIT Advanced Practice Midwife
DX: O99.613 Diseases of the digestive system complicating pregnancy, third trimester (principal); T81.49XA Infection following a procedure, other surgical site, initial encounter; K05.20 Aggressive periodontitis, unspecified; Z3A.30 30 weeks gestation of pregnancy; Z20.828 Contact with and (suspected) exposure to other viral communicable diseases; Z88.0 Allergy status to penicillin; Z88.8 Allergy status to other drugs, medicaments and biological substances; Z87.891 Personal history of nicotine dependence; F31.9 Bipolar disorder, unspecified; E87.1 Hypo-osmolality and hyponatremia; I95.9 Hypotension, unspecified; R82.90 Unspecified abnormal findings in urine
CPT/HCPCS: 36415; 59025; 80053; 81001; 81003; 85025; 87040; 87086; 87106; 96361; 96365; A9270; G0378; J0696; J7120; U0003

== ENCOUNTER 2020-03-30 07:12 | Emergency (ER) | payer OTHER ==
[~2020-03-30] VITALS: Ht 160 cm; Wt 62.6 kg
[~2020-03-30 07:12] MED LIST changes: +CLIN150 PO
[2020-03-30] MEDS ORDERED: CEFD300 PO (07:31)
== END 2020-03-30 08:15 | disposition home or self-care (01) ==
LOC: ER 07:12
DX: O99.613 Diseases of the digestive system complicating pregnancy, third trimester (principal); K04.7 Periapical abscess without sinus; O21.9 Vomiting of pregnancy, unspecified; T36.1X5A Adverse effect of cephalosporins and other beta-lactam antibiotics, initial encounter; Z3A.30 30 weeks gestation of pregnancy; Z88.0 Allergy status to penicillin; Z88.8 Allergy status to other drugs, medicaments and biological substances; Z79.2 Long term (current) use of antibiotics; Z87.891 Personal history of nicotine dependence
CPT/HCPCS: 99283

== ENCOUNTER 2020-04-29 10:49 | Emergency (ER) | payer OTHER ==
[~2020-04-29] VITALS: Ht 160 cm; Wt 63.5 kg
[~2020-04-29 10:49] MED LIST changes: +CEFD300 PO
[2020-04-29 12:43] LABS: BASOPHILS ABSOLUTE AUTO 0.05 K/mm3 (0.00-0.23); BASOPHILS PERCENT AUTO 1 % (0-2); EOSINOPHILS ABSOLUTE AUTO 0.18 K/mm3 (0.00-0.68); EOSINOPHILS PERCENT AUTO 2 % (0-6); Hematocrit 37.1 % (33.0-51.0); Hemoglobin 11.6 g/dL (11.5-16.0); IMMATURE GRAN ABSOLUTE AUTO 0.05 K/mm3 (0.00-0.10); IMMATURE GRAN PERCENT AUTO 1 % (0-1); LYMPHOCYTES ABSOLUTE AUTO 1.34 K/mm3 (0.84-5.20); LYMPHOCYTES PERCENT AUTO 16 % (21-46); MONOCYTES ABSOLUTE AUTO 0.64 K/mm3 (0.16-1.47); MONOCYTES PERCENT AUTO 8 % (4-13); Mean Corpuscular HGB 26.7 pg (26.0-34.0); Mean Corpuscular HGB Conc 31.3 g/dL (31.5-36.5); Mean Corpuscular Volume 85 fL (80-100); Mean Platelet Volume 10.7 fL (9.1-12.4); NEUTROPHILS ABSOLUTE AUTO 5.91 K/mm3 (1.96-9.15); NEUTROPHILS PERCENT AUTO 72 % (41-73); Platelet Count 182 K/mm3 (150-400); RDW Coefficient Variation 14.6 % (11.7-14.2); RDW Standard Deviation 45.5 fL (35.1-46.3); Red Blood Cell Count 4.35 M/mm3 (3.80-5.20); White Blood Cell Count 8.17 K/mm3 (4.00-11.30)
[2020-04-29 12:51] LABS: Anion Gap 7 mmol/L (6-16); Blood Urea Nitrogen 11 mg/dL (8-24); Bun/Creatinine Ratio 16.5 (12.0-20.0); CO2, Blood 24 mmol/L (21-32); Calcium, Blood 8.6 mg/dL (8.5-10.1); Chloride, Blood 108 mmol/L (98-108); Creatinine, Blood 0.67 mg/dL (0.40-1.00); Glomerular Filtration Rate >60 (60-); Glucose, Blood 73 mg/dL (70-99); Potassium, Blood 4.2 mmol/L (3.5-5.5); Sodium, Blood 139 mmol/L (136-145)
== END 2020-04-29 15:09 | disposition home or self-care (01) ==
LOC: ER 10:49
PROVIDERS: Physician Assistant
DX: K21.9 Gastro-esophageal reflux disease without esophagitis (principal); F17.210 Nicotine dependence, cigarettes, uncomplicated; Z33.1 Pregnant state, incidental
CPT/HCPCS: 36415; 80048; 85025; 93005; 93010; 99285-25

== ENCOUNTER → 2020-05-12 | Outpatient (CLI) | payer OTHER ==
[~2020-05-12] MED LIST changes: +IBUP600 PO; +NU IRON PO
== END | disposition home or self-care (01) ==
LOC: LAB 18:53 → LAB SHORT 18:53
DX: Z34.83 Encounter for supervision of other normal pregnancy, third trimester (principal)
CPT/HCPCS: 87081; 87150

== ENCOUNTER 2020-05-30 09:20 | Inpatient (IN) | payer OTHER ==
[~2020-05-30] VITALS: Ht 165.1 cm; Wt 65.0 kg
[~2020-05-30 09:20] MED LIST changes: -IBUP600 PO; -NU IRON PO
[2020-05-30] MEDS ORDERED: NU IRON PO (11:32)
[2020-05-30] MEDS ORDERED: PRENATAL TABLE1 EAC2 PO (11:32)
[2020-05-30 12:09] LABS: BASOPHILS ABSOLUTE AUTO 0.05 K/mm3 (0.00-0.23); BASOPHILS PERCENT AUTO 1 % (0-2); EOSINOPHILS ABSOLUTE AUTO 0.09 K/mm3 (0.00-0.68); EOSINOPHILS PERCENT AUTO 1 % (0-6); Hematocrit 37.9 % (33.0-51.0); Hemoglobin 11.9 g/dL (11.5-16.0); IMMATURE GRAN ABSOLUTE AUTO 0.04 K/mm3 (0.00-0.10); IMMATURE GRAN PERCENT AUTO 0 % (0-1); LYMPHOCYTES ABSOLUTE AUTO 1.78 K/mm3 (0.84-5.20); LYMPHOCYTES PERCENT AUTO 18 % (21-46); MONOCYTES ABSOLUTE AUTO 0.79 K/mm3 (0.16-1.47); MONOCYTES PERCENT AUTO 8 % (4-13); Mean Corpuscular HGB 25.9 pg (26.0-34.0); Mean Corpuscular HGB Conc 31.4 g/dL (31.5-36.5); Mean Corpuscular Volume 82 fL (80-100); Mean Platelet Volume 11.2 fL (9.1-12.4); NEUTROPHILS ABSOLUTE AUTO 7.03 K/mm3 (1.96-9.15); NEUTROPHILS PERCENT AUTO 72 % (41-73); Platelet Count 226 K/mm3 (150-400); White Blood Cell Count 9.78 K/mm3 (4.00-11.30)
[2020-05-30 13:22] LABS: Influenza A, PCR Negative (NEGATIVE); Influenza B, PCR Negative (NEGATIVE); Resp Syncytial Virus, PCR Negative (NEGATIVE); SARS-Cov-2 (COVID-19) PCR, MMC Negative (NEGATIVE)
--- NOTE | 2020-05-30 18:01 | NUR ---
HERE FOR SROM. NITRAZINE NEGATIVE. UNDERWEAR VERY WET. U/S SHOWED CORINE OF 7.4 ADMITTED FOR LABOR
[2020-05-31 05:00] LABS: Hematocrit 30.6 % (33.0-51.0); Hemoglobin 9.6 g/dL (11.5-16.0); Mean Corpuscular HGB Conc 31.4 g/dL (31.5-36.5); Mean Corpuscular Volume 83 fL (80-100); Mean Platelet Volume 10.2 fL (9.1-12.4); Platelet Count 189 K/mm3 (150-400); RDW Coefficient Variation 16.1 % (11.7-14.2); RDW Standard Deviation 49.5 fL (35.1-46.3); Red Blood Cell Count 3.69 M/mm3 (3.80-5.20)
--- NOTE | 2020-05-31 12:00 | NUR ---
Mike Bhatti, Child welfare senior human resources representative, here to assess situation and speak with pt and SO.
--- NOTE | 2020-05-31 13:15 | NUR ---
CSD note Pt is cleared to d/c home with nb. CSD will follow up at home on Tuesday06/01/20.
[2020-05-31] MEDS ORDERED: IBUP600 PO (15:38)
--- NOTE | 2020-05-31 16:53 | NUR ---
Pt notified of NB having utox positive for opiates. When asked if she had been taking anything she denied any use initially. When RN started to name off various opiates that could cause positive screen, pt did admit to taking Tylenol 3 prescribed by her dentist. There are 2 notes in OB history regarding dental infection and tooth infection for later in May after delivery. Pt states she had recent root canal x3 in same day and was given tylenol 3 by dentist. She states she only takes 1 pill per day and took one 05/29/20. Pt and SO state that root canal took place on 05/23/20 and that is when she began to take tylenol 3. Initially she was prescribed tramadol, after hospital stay for tooth infection in March. Child welfare notified. Mike, child welfare mechanical service representative states that nb is still ok to discharge home with parents when okayed by cmo.
--- NOTE | 2020-05-31 19:27 | NUR ---
Printed d/c instructions and teaching reviewed w/pt and SO. Verbalized understanding. Questions answered to their satisfaction. No acute changes t/o shift. Report to oncoming RN.
--- NOTE | 2020-05-31 21:55 | NUR ---
[facility] BY PREVIOUS SHIFT. PAIN CONTROLLED AND VSS. CARING FOR NB, DOES REQUIRE SOME REMINDERS AND ASSISTANCE FROM STAFF REGARDING FEEDS. DISCUSSED MMR VACCINE AND RISK TO FUTURE PREGNANCIES. DECLINES AT THIS TIME AND WOULD LIKE TO DISCUSS IT WITH HER PROVIDER AT HER FOLLOW UP APPOINTMENT.
== END 2020-05-31 22:06 | disposition home or self-care (01) | DRG 807 ==
LOC: OBS 09:20 → BC 09:20 → OBS 11:16 → BC 11:17
PROVIDERS: Obstetrics & Gynecology; ADMIT Obstetrics & Gynecology
PROC: 10E0XZZ Delivery of Products of Conception, External Approach (ICD-10-PCS; principal; 2020-05-30)
DX: O99.824 Streptococcus B carrier state complicating childbirth (principal); Z37.0 Single live birth; Z20.828 Contact with and (suspected) exposure to other viral communicable diseases; Z3A.39 39 weeks gestation of pregnancy
CPT/HCPCS: 0241U; 36415; 76815; 85025; 85027; 86850; 86900; 86901; J1885; J2590

== ENCOUNTER → 2020-09-19 | Outpatient (CLI) | payer OTHER ==
[~2020-09-19] MED LIST changes: +IBUP600 PO; +NU IRON PO
[2020-09-20 09:53] LABS: Candida species (DNA Probe) Positive (NEGATIVE); G. vaginalis (DNA Probe) Negative (NEGATIVE); T. vaginalis (DNA Probe) Negative (NEGATIVE)
== END | disposition home or self-care (01) ==
LOC: LAB 13:21 → LAB SHORT 13:21 → EDSTATUS 14:25
PROVIDERS: Family Medicine
DX: N30.00 Acute cystitis without hematuria (principal); N76.0 Acute vaginitis
CPT/HCPCS: 87086; 87480; 87510; 87660

== ENCOUNTER → 2020-12-24 | Outpatient (CLI) | payer OTHER ==
[2020-12-25 09:13] LABS: Candida species (DNA Probe) Negative (NEGATIVE); G. vaginalis (DNA Probe) Negative (NEGATIVE); T. vaginalis (DNA Probe) Negative (NEGATIVE)
== END | disposition home or self-care (01) ==
LOC: LAB 15:47 → LAB SHORT 15:47
PROVIDERS: Obstetrics & Gynecology
DX: B37.3 Candidiasis of vulva and vagina (principal)
CPT/HCPCS: 87480; 87510; 87660

== ENCOUNTER → 2021-01-13 | Outpatient (CLI) | payer OTHER ==
[2021-01-13 17:37] LABS: Source, Urine Clean Catch
[2021-01-13 19:54] LABS: U Amphetamine Screen Not Detected; U Barbituate Screen Not Detected; U Benzodiazapine Screen Not Detected; U Buprenorphine Screen Not Detected; U Cannabinoids Screen Not Detected; U Cocaine Screen Not Detected; U Methadone Screen Not Detected; U Methamphetamine Screen Not Detected; U Opiates Screen Not Detected; U Oxycodone Screen Not Detected; U Phencyclidine Screen Not Detected; U Propoxyphene Screen Not Detected
[2021-01-13 19:56] LABS: Bacteria Many /hpf; Red Blood Cells, Urine 0-2 /hpf (0-2); Squamous Epithelial Cells Mod /hpf (Few)
[2021-01-13 19:57] LABS: Mucus Light (0-Heavy)
== END | disposition home or self-care (01) ==
LOC: LAB 17:33 → LAB SHORT 17:33
PROVIDERS: Obstetrics & Gynecology
DX: Z34.81 Encounter for supervision of other normal pregnancy, first trimester (principal)
CPT/HCPCS: 81015; 87086

== ENCOUNTER → 2021-02-04 | Outpatient (CLI) | payer OTHER ==
[2021-02-05 13:11] LABS: HPV 16 Negative (Negative); HPV 18 Negative (Negative); HPV OTHER HR TYPES Negative (Negative)
== END ==
LOC: LAB 16:47 → LAB SHORT 16:47
PROVIDERS: Obstetrics & Gynecology
DX: Z01.419 Encounter for gynecological examination (general) (routine) without abnormal findings (principal); Z88.0 Allergy status to penicillin; Z88.1 Allergy status to other antibiotic agents; Z88.8 Allergy status to other drugs, medicaments and biological substances
CPT/HCPCS: 87624; G0123

== ENCOUNTER → 2022-07-19 | Outpatient (CLI) | payer OTHER ==
[2022-07-22 02:07] LABS: CHLAMYDIA TRACHOMATIS, NAA Negative (Negative)
== END | disposition home or self-care (01) ==
LOC: LAB 18:32 → LAB SHORT 18:32
PROVIDERS: Family Medicine
DX: Z34.81 Encounter for supervision of other normal pregnancy, first trimester (principal); Z3A.01 Less than 8 weeks gestation of pregnancy
CPT/HCPCS: 87086; 87491; 87591

== ENCOUNTER 2023-01-04 21:10 | Emergency (ER) | payer OTHER ==
[~2023-01-04] VITALS: Ht 162.6 cm; Wt 70.3 kg
[2023-01-04] MEDS ORDERED: VALTREX50013 PO (22:15)
[2023-01-04] MEDS ORDERED: FERSU300 PO (22:15)
[2023-01-04 22:29] LABS: BASOPHILS ABSOLUTE AUTO 0.06 K/mm3 (0.00-0.23); BASOPHILS PERCENT AUTO 1 % (0-2); EOSINOPHILS ABSOLUTE AUTO 0.23 K/mm3 (0.00-0.68); EOSINOPHILS PERCENT AUTO 3 % (0-6); Hematocrit 41.5 % (33.0-51.0); Hemoglobin 13.4 g/dL (11.5-16.0); IMMATURE GRAN ABSOLUTE AUTO 0.02 K/mm3 (0.00-0.10); IMMATURE GRAN PERCENT AUTO 0 % (0-1); LYMPHOCYTES ABSOLUTE AUTO 2.63 K/mm3 (0.84-5.20); LYMPHOCYTES PERCENT AUTO 29 % (21-46); MONOCYTES ABSOLUTE AUTO 0.59 K/mm3 (0.16-1.47); MONOCYTES PERCENT AUTO 6 % (4-13); Mean Corpuscular HGB 25.9 pg (26.0-34.0); Mean Corpuscular HGB Conc 32.3 g/dL (31.5-36.5); Mean Corpuscular Volume 80 fL (80-100); Mean Platelet Volume 9.5 fL (9.1-12.4); NEUTROPHILS ABSOLUTE AUTO 5.65 K/mm3 (1.96-9.15); NEUTROPHILS PERCENT AUTO 62 % (41-73); Platelet Count 329 K/mm3 (150-400); RDW Coefficient Variation 15.4 % (11.7-14.2); RDW Standard Deviation 44.4 fL (35.1-46.3); Red Blood Cell Count 5.17 M/mm3 (3.80-5.20); White Blood Cell Count 9.18 K/mm3 (4.00-11.30)
[2023-01-04 22:52] LABS: Source, Urine Clean Catch
[2023-01-04 22:56] LABS: Albumin, Blood 3.3 g/dL (3.4-5.0); Albumin/Globulin Ratio 0.8 (0.8-1.8); Bilirubin, Total 0.2 mg/dL (0.1-1.0); Bun/Creatinine Ratio 17.8 (12.0-20.0); Calcium, Blood 8.8 mg/dL (8.5-10.1); Creatinine, Blood 0.9 mg/dL (0.40-1.00); Globulin, Blood 4.3 g/dL (2.2-4.0); Potassium, Blood 4.1 mmol/L (3.5-5.5); Total Protein, Blood 7.6 g/dL (6.4-8.2)
[2023-01-04 22:56] LABS: Bilirubin, Urine Neg (Neg); Blood, Urine 5+ (Neg); Glucose Qualitative, Urine Neg (Neg); Ketones, Urine Neg (Neg); Leukocyte Esterase, Urine 1+ (Neg); Nitrite, Urine Neg (Neg); Protein, Urine Neg (Neg); Urobilinogen, Urine NORM (Normal)
[2023-01-04 23:19] LABS: Color, Urine Yellow (P-Yellow)
[2023-01-04 23:20] LABS: Appearance, Urine Hazy (Clear); Bacteria Few /hpf; Red Blood Cells, Urine TNTC /hpf (0-2); Squamous Epithelial Cells Few /hpf (Few); Transitional Epithelial Cells Few /hpf (0-Rare); White Blood Cells, Urine 0-2 /hpf (0-5)
[2023-01-04 23:45] VITALS: BP 111/77
== END 2023-01-04 23:50 | disposition home or self-care (01) ==
LOC: ER 21:10
PROVIDERS: Emergency Medicine
DX: O90.89 Other complications of the puerperium, not elsewhere classified (principal); R10.2 Pelvic and perineal pain; S39.012A Strain of muscle, fascia and tendon of lower back, initial encounter; F17.210 Nicotine dependence, cigarettes, uncomplicated; V89.2XXA Person injured in unspecified motor-vehicle accident, traffic, initial encounter; Z88.0 Allergy status to penicillin; Z88.1 Allergy status to other antibiotic agents; Z88.8 Allergy status to other drugs, medicaments and biological substances; Z79.899 Other long term (current) drug therapy
CPT/HCPCS: 72040; 72100; 80053; 81001; 85025; 86850; 86900; 86901; 96374; 99283-25; J1885

== ENCOUNTER 2023-02-18 04:20 | Observation (INO) | payer OTHER ==
[~2023-02-18] VITALS: Ht 167.6 cm; Wt 65.8 kg
[~2023-02-18 04:20] MED LIST changes: +FERSU300 PO; +VALTREX50013 PO
[2023-02-18 05:02] LABS: BASOPHILS ABSOLUTE AUTO 0.07 K/mm3 (0.00-0.23); BASOPHILS PERCENT AUTO 1 % (0-2); EOSINOPHILS ABSOLUTE AUTO 0.11 K/mm3 (0.00-0.68); EOSINOPHILS PERCENT AUTO 1 % (0-6); Hematocrit 40.3 % (33.0-51.0); Hemoglobin 13.3 g/dL (11.5-16.0); IMMATURE GRAN ABSOLUTE AUTO 0.04 K/mm3 (0.00-0.10); IMMATURE GRAN PERCENT AUTO 0 % (0-1); LYMPHOCYTES ABSOLUTE AUTO 2.36 K/mm3 (0.84-5.20); LYMPHOCYTES PERCENT AUTO 18 % (21-46); MONOCYTES ABSOLUTE AUTO 1.04 K/mm3 (0.16-1.47); MONOCYTES PERCENT AUTO 8 % (4-13); Mean Corpuscular HGB 26.7 pg (26.0-34.0); Mean Corpuscular Volume 81 fL (80-100); Mean Platelet Volume 10.1 fL (9.1-12.4); NEUTROPHILS ABSOLUTE AUTO 9.44 K/mm3 (1.96-9.15); NEUTROPHILS PERCENT AUTO 72 % (41-73); Platelet Count 280 K/mm3 (150-400); RDW Coefficient Variation 16.2 % (11.7-14.2); RDW Standard Deviation 47.8 fL (35.1-46.3); Red Blood Cell Count 4.98 M/mm3 (3.80-5.20); White Blood Cell Count 13.06 K/mm3 (4.00-11.30)
[2023-02-18 05:05] LABS: Source, Urine Clean Catch
[2023-02-18 05:07] LABS: Blood, Urine Neg (Neg); Glucose Qualitative, Urine Neg (Neg); Ketones, Urine 3+ (Neg); Leukocyte Esterase, Urine 2+ (Neg); Nitrite, Urine Neg (Neg); Protein, Urine 2+ (Neg); Specific Gravity, Urine 1.025 (1.003-1.022); Urobilinogen, Urine 1+ (Normal)
[2023-02-18 05:26] LABS: Ethanol (Alcohol), Blood, Med <3 mg/dL; Salicylate 2.1 mg/dL (2.8-20.0)
[2023-02-18 05:27] LABS: U Amphetamine Screen Not Detected; U Barbituate Screen Not Detected; U Benzodiazapine Screen Not Detected; U Buprenorphine Screen Not Detected; U Cannabinoids Screen DETECTED; U Cocaine Screen Not Detected; U Methadone Screen Not Detected; U Methamphetamine Screen Not Detected; U Opiates Screen Not Detected; U Oxycodone Screen Not Detected; U Phencyclidine Screen Not Detected; U Propoxyphene Screen Not Detected
[2023-02-18 05:29] LABS: Appearance, Urine Hazy (Clear); Bilirubin, Urine 1+ (Neg); Color, Urine Yellow (P-Yellow)
[2023-02-18 05:30] LABS: Bacteria Mod /hpf; Mucus Heavy (0-Heavy); Squamous Epithelial Cells Many /hpf (Few)
[2023-02-18 05:40] LABS: Alanine Aminotransfer (ALT/SGP 49 U/L (12-78); Albumin, Blood 4.1 g/dL (3.4-5.0); Albumin/Globulin Ratio 1.1 (0.8-1.8); Alk Phos 106 U/L (50-136); Anion Gap 8 mmol/L (6-16); Aspartate Aminotrans (AST/SGOT 45 U/L (12-37); Bilirubin, Total 0.8 mg/dL (0.1-1.0); Blood Urea Nitrogen 13 mg/dL (8-24); Bun/Creatinine Ratio 14.1 (12.0-20.0); CO2, Blood 24 mmol/L (21-32); Calcium, Blood 9.1 mg/dL (8.5-10.1); Chloride, Blood 110 mmol/L (98-108); Creatinine, Blood 0.93 mg/dL (0.40-1.00); Globulin, Blood 3.7 g/dL (2.2-4.0); Glomerular Filtration Rate 84 (60-); Glucose, Blood 77 mg/dL (70-99); Potassium, Blood 3.4 mmol/L (3.5-5.5); Sodium, Blood 142 mmol/L (136-145); Total Protein, Blood 7.8 g/dL (6.4-8.2)
[2023-02-18 05:41] LABS: Acetaminophen, Random <2.0 ug/mL (10.0-30.0)
[2023-02-18 19:56] VITALS: BP 94/60
== END 2023-02-19 01:45 | disposition home or self-care (01) ==
LOC: ER 04:20 → EOR 04:21
PROVIDERS: ADMIT Student in an Organized Health Care Education/Training Program
DX: O99.345 Other mental disorders complicating the puerperium (principal); F25.9 Schizoaffective disorder, unspecified; K21.9 Gastro-esophageal reflux disease without esophagitis; Z87.891 Personal history of nicotine dependence; Z88.0 Allergy status to penicillin; Z88.1 Allergy status to other antibiotic agents; Z88.8 Allergy status to other drugs, medicaments and biological substances; Z79.899 Other long term (current) drug therapy
CPT/HCPCS: 80053; 81001; 81025; 85025; 87086; 99284; A9270; G0378; G0480

== ENCOUNTER 2023-03-27 11:47 | Observation (INO) | payer SELFPAY ==
[~2023-03-27] VITALS: Ht 160 cm; Wt 61.2 kg
[2023-03-27 13:36] LABS: BASOPHILS ABSOLUTE AUTO 0.03 K/mm3 (0.00-0.23); BASOPHILS PERCENT AUTO 0 % (0-2); EOSINOPHILS ABSOLUTE AUTO 0.07 K/mm3 (0.00-0.68); EOSINOPHILS PERCENT AUTO 1 % (0-6); Hematocrit 44.8 % (33.0-51.0); Hemoglobin 14.6 g/dL (11.5-16.0); IMMATURE GRAN ABSOLUTE AUTO 0.03 K/mm3 (0.00-0.10); IMMATURE GRAN PERCENT AUTO 0 % (0-1); LYMPHOCYTES ABSOLUTE AUTO 2.11 K/mm3 (0.84-5.20); LYMPHOCYTES PERCENT AUTO 23 % (21-46); MONOCYTES ABSOLUTE AUTO 0.64 K/mm3 (0.16-1.47); MONOCYTES PERCENT AUTO 7 % (4-13); Mean Corpuscular HGB 27.4 pg (26.0-34.0); Mean Corpuscular HGB Conc 32.6 g/dL (31.5-36.5); Mean Corpuscular Volume 84 fL (80-100); Mean Platelet Volume 10.5 fL (9.1-12.4); NEUTROPHILS ABSOLUTE AUTO 6.51 K/mm3 (1.96-9.15); NEUTROPHILS PERCENT AUTO 69 % (41-73); Platelet Count 220 K/mm3 (150-400); RDW Coefficient Variation 17.1 % (11.7-14.2); RDW Standard Deviation 52.2 fL (35.1-46.3); Red Blood Cell Count 5.33 M/mm3 (3.80-5.20); White Blood Cell Count 9.39 K/mm3 (4.00-11.30)
[2023-03-27 13:57] LABS: Ethanol (Alcohol), Blood, Med <3 mg/dL; Salicylate <1.7 mg/dL (2.8-20.0)
[2023-03-27 13:59] LABS: Acetaminophen, Random <2.0 ug/mL (10.0-30.0); Alanine Aminotransfer (ALT/SGP 55 U/L (12-78); Albumin, Blood 4.1 g/dL (3.4-5.0); Albumin/Globulin Ratio 1.1 (0.8-1.8); Alk Phos 74 U/L (50-136); Anion Gap 7 mmol/L (6-16); Aspartate Aminotrans (AST/SGOT 37 U/L (12-37); Bilirubin, Total 0.7 mg/dL (0.1-1.0); Blood Urea Nitrogen 14 mg/dL (8-24); Bun/Creatinine Ratio 17.5 (12.0-20.0); CO2, Blood 28 mmol/L (21-32); Calcium, Blood 9.4 mg/dL (8.5-10.1); Chloride, Blood 112 mmol/L (98-108); Globulin, Blood 3.6 g/dL (2.2-4.0); Glomerular Filtration Rate 101 (60-); Glucose, Blood 99 mg/dL (70-99); Potassium, Blood 3.7 mmol/L (3.5-5.5); Sodium, Blood 147 mmol/L (136-145); Total Protein, Blood 7.7 g/dL (6.4-8.2)
[2023-03-27 18:23] LABS: Source, Urine Clean Catch
[2023-03-27 18:34] LABS: Appearance, Urine Hazy (Clear); Bilirubin, Urine Neg (Neg); Blood, Urine 2+ (Neg); Color, Urine Yellow (P-Yellow); Glucose Qualitative, Urine Neg (Neg); Ketones, Urine 2+ (Neg); Leukocyte Esterase, Urine 3+ (Neg); Nitrite, Urine Neg (Neg); Protein, Urine 2+ (Neg); Urobilinogen, Urine NORM (Normal)
[2023-03-27 18:47] LABS: U Amphetamine Screen Not Detected; U Barbituate Screen Not Detected; U Benzodiazapine Screen Not Detected; U Buprenorphine Screen Not Detected; U Cannabinoids Screen Not Detected; U Cocaine Screen Not Detected; U Methadone Screen Not Detected; U Methamphetamine Screen Not Detected; U Opiates Screen Not Detected; U Oxycodone Screen Not Detected; U Phencyclidine Screen Not Detected; U Propoxyphene Screen Not Detected
[2023-03-27 18:54] LABS: Bacteria Many /hpf; Mucus Mod (0-Heavy); Squamous Epithelial Cells Mod /hpf (Few)
[2023-03-28 01:32] LABS: Influenza A, PCR NEGATIVE (NEGATIVE); Influenza B, PCR NEGATIVE (NEGATIVE); Resp Syncytial Virus, PCR NEGATIVE (NEGATIVE); SARS-Cov-2 (COVID-19) PCR, MMC NEGATIVE (NEGATIVE)
[2023-04-02 19:25] VITALS: BP 117/61
[2023-04-03] MEDS ORDERED: HALOPERIDOL10 MG PO (13:43)
== END 2023-04-03 22:32 | disposition home or self-care (01) ==
LOC: ER 11:47 → EOR 11:48
PROVIDERS: ADMIT Student in an Organized Health Care Education/Training Program
DX: F25.9 Schizoaffective disorder, unspecified (principal); Z20.822 Contact with and (suspected) exposure to COVID-19; Z88.0 Allergy status to penicillin; Z88.1 Allergy status to other antibiotic agents; Z88.8 Allergy status to other drugs, medicaments and biological substances
CPT/HCPCS: 0241U; 80053; 81001; 81025; 85025; 87086; 93005; 93010; 99285-25; A9270; G0378; G0480

== ENCOUNTER 2023-04-06 15:34 | Emergency (ER) | payer OTHER ==
[~2023-04-06] VITALS: Ht 162.6 cm; Wt 61.2 kg
[~2023-04-06 15:34] MED LIST changes: +HALOPERIDOL10 MG PO
[2023-04-06 15:44] VITALS: BP 120/85
[2023-04-06] MEDS ORDERED: NARCAN4 M1 (15:51)
[2023-04-06] MEDS ORDERED: Pepcid40 MG PO (15:51)
== END 2023-04-06 15:52 | disposition home or self-care (01) ==
LOC: ER 15:34
DX: Z76.0 Encounter for issue of repeat prescription (principal); Z88.0 Allergy status to penicillin; Z88.1 Allergy status to other antibiotic agents; Z88.8 Allergy status to other drugs, medicaments and biological substances; Z79.899 Other long term (current) drug therapy; K21.9 Gastro-esophageal reflux disease without esophagitis; Z87.891 Personal history of nicotine dependence
CPT/HCPCS: 99283

== ENCOUNTER 2023-04-07 20:40 | Emergency (ER) | payer SELFPAY ==
[~2023-04-07] VITALS: Ht 160 cm; Wt 72.6 kg
[~2023-04-07 20:40] MED LIST changes: +NARCAN4 M1; +Pepcid40 MG PO
[2023-04-07 21:11] VITALS: BP 96/69
[2023-04-07 22:16] LABS: BASOPHILS ABSOLUTE AUTO 0.04 K/mm3 (0.00-0.23); BASOPHILS PERCENT AUTO 0 % (0-2); EOSINOPHILS ABSOLUTE AUTO 0.19 K/mm3 (0.00-0.68); EOSINOPHILS PERCENT AUTO 2 % (0-6); Hematocrit 40.3 % (33.0-51.0); Hemoglobin 13.3 g/dL (11.5-16.0); IMMATURE GRAN ABSOLUTE AUTO 0.02 K/mm3 (0.00-0.10); IMMATURE GRAN PERCENT AUTO 0 % (0-1); LYMPHOCYTES ABSOLUTE AUTO 2.31 K/mm3 (0.84-5.20); LYMPHOCYTES PERCENT AUTO 25 % (21-46); MONOCYTES ABSOLUTE AUTO 0.64 K/mm3 (0.16-1.47); MONOCYTES PERCENT AUTO 7 % (4-13); Mean Corpuscular HGB 28.2 pg (26.0-34.0); Mean Corpuscular Volume 85 fL (80-100); Mean Platelet Volume 10.3 fL (9.1-12.4); NEUTROPHILS ABSOLUTE AUTO 5.93 K/mm3 (1.96-9.15); NEUTROPHILS PERCENT AUTO 65 % (41-73); Platelet Count 273 K/mm3 (150-400); RDW Coefficient Variation 16.6 % (11.7-14.2); RDW Standard Deviation 52.5 fL (35.1-46.3); Red Blood Cell Count 4.72 M/mm3 (3.80-5.20); White Blood Cell Count 9.13 K/mm3 (4.00-11.30)
[2023-04-07 22:36] LABS: Albumin, Blood 3.3 g/dL (3.4-5.0); Albumin/Globulin Ratio 0.9 (0.8-1.8); Bilirubin, Total 0.2 mg/dL (0.1-1.0); Bun/Creatinine Ratio 13.1 (12.0-20.0); Calcium, Blood 9.1 mg/dL (8.5-10.1); Creatinine, Blood 0.84 mg/dL (0.40-1.00); Globulin, Blood 3.5 g/dL (2.2-4.0); Potassium, Blood 4.2 mmol/L (3.5-5.5); Total Protein, Blood 6.8 g/dL (6.4-8.2)
== END 2023-04-07 23:31 | disposition home or self-care (01) ==
LOC: ER 20:40
PROVIDERS: Student in an Organized Health Care Education/Training Program
DX: M54.2 Cervicalgia (principal); R10.9 Unspecified abdominal pain; Z88.0 Allergy status to penicillin; Z88.1 Allergy status to other antibiotic agents; Z88.8 Allergy status to other drugs, medicaments and biological substances; Z79.899 Other long term (current) drug therapy; Z87.891 Personal history of nicotine dependence
CPT/HCPCS: 80053; 83690; 84703; 85025; 99283; A9270

== ENCOUNTER 2023-04-13 17:13 | Emergency (ER) | payer OTHER ==
[~2023-04-13] VITALS: Ht 167.6 cm; Wt 63.5 kg
[2023-04-13 17:22] VITALS: BP 120/83
[2023-04-13] MEDS ORDERED: HALO5 PO (17:24)
== END 2023-04-13 17:32 | disposition home or self-care (01) ==
LOC: ER 17:13
DX: Z76.0 Encounter for issue of repeat prescription (principal); Z88.0 Allergy status to penicillin; Z88.1 Allergy status to other antibiotic agents; Z88.8 Allergy status to other drugs, medicaments and biological substances; Z79.899 Other long term (current) drug therapy; K21.9 Gastro-esophageal reflux disease without esophagitis; Z87.891 Personal history of nicotine dependence
CPT/HCPCS: 99281; A9270

== ENCOUNTER 2023-05-28 14:36 | Observation (INO) | payer OTHER ==
[~2023-05-28] VITALS: Ht 165.1 cm; Wt 70.3 kg
[~2023-05-28 14:36] MED LIST changes: +HALO5 PO
[2023-05-28 15:32] LABS: BASOPHILS ABSOLUTE AUTO 0.05 K/mm3 (0.00-0.23); BASOPHILS PERCENT AUTO 1 % (0-2); EOSINOPHILS ABSOLUTE AUTO 0.12 K/mm3 (0.00-0.68); EOSINOPHILS PERCENT AUTO 1 % (0-6); Hematocrit 43.2 % (33.0-51.0); Hemoglobin 14.4 g/dL (11.5-16.0); IMMATURE GRAN ABSOLUTE AUTO 0.06 K/mm3 (0.00-0.10); IMMATURE GRAN PERCENT AUTO 1 % (0-1); LYMPHOCYTES ABSOLUTE AUTO 1.83 K/mm3 (0.84-5.20); LYMPHOCYTES PERCENT AUTO 19 % (21-46); MONOCYTES ABSOLUTE AUTO 0.74 K/mm3 (0.16-1.47); MONOCYTES PERCENT AUTO 8 % (4-13); Mean Corpuscular HGB 29.2 pg (26.0-34.0); Mean Corpuscular HGB Conc 33.3 g/dL (31.5-36.5); Mean Corpuscular Volume 88 fL (80-100); NEUTROPHILS ABSOLUTE AUTO 6.79 K/mm3 (1.96-9.15); NEUTROPHILS PERCENT AUTO 71 % (41-73); RDW Coefficient Variation 14.4 % (11.7-14.2); RDW Standard Deviation 46.3 fL (35.1-46.3); Red Blood Cell Count 4.93 M/mm3 (3.80-5.20); White Blood Cell Count 9.59 K/mm3 (4.00-11.30)
[2023-05-28 15:43] LABS: Ethanol (Alcohol), Blood, Med <3 mg/dL
[2023-05-28 15:51] LABS: Platelet Count 240 K/mm3 (150-400)
[2023-05-28 15:52] LABS: Magnesium, Blood 2.2 mg/dL (1.6-2.4)
[2023-05-28 15:53] LABS: Thyroid Stimulating Hormone 3.42 uIU/mL (0.360-4.800)
[2023-05-28 16:09] LABS: Acetaminophen, Random <2.0 ug/mL (10.0-30.0); Alanine Aminotransfer (ALT/SGP 20 U/L (12-78); Albumin, Blood 4.2 g/dL (3.4-5.0); Alk Phos 96 U/L (50-136); Anion Gap 5 mmol/L (6-16); Aspartate Aminotrans (AST/SGOT 20 U/L (12-37); Bilirubin, Total 0.6 mg/dL (0.1-1.0); Blood Urea Nitrogen 20 mg/dL (8-24); CO2, Blood 27 mmol/L (21-32); Calcium, Blood 9.3 mg/dL (8.5-10.1); Chloride, Blood 110 mmol/L (98-108); Creatinine, Blood 0.77 mg/dL (0.40-1.00); Glomerular Filtration Rate 106 (60-); Glucose, Blood 98 mg/dL (70-99); Potassium, Blood 4.2 mmol/L (3.5-5.5); Sodium, Blood 142 mmol/L (136-145); Total Protein, Blood 8.2 g/dL (6.4-8.2)
[2023-05-28 17:14] LABS: Source, Urine Clean Catch
[2023-05-28 17:17] LABS: Appearance, Urine Hazy (Clear); Bilirubin, Urine Neg (Neg); Blood, Urine 1+ (Neg); Color, Urine Amber (P-Yellow); Glucose Qualitative, Urine Neg (Neg); Ketones, Urine 1+ (Neg); Leukocyte Esterase, Urine Neg (Neg); Nitrite, Urine Neg (Neg); Protein, Urine 2+ (Neg); Specific Gravity, Urine 1.025 (1.003-1.022); Urobilinogen, Urine NORM (Normal)
[2023-05-28 17:33] LABS: U Amphetamine Screen Not Detected; U Barbituate Screen Not Detected; U Benzodiazapine Screen Not Detected; U Buprenorphine Screen Not Detected; U Cannabinoids Screen Not Detected; U Cocaine Screen Not Detected; U Methadone Screen Not Detected; U Methamphetamine Screen Not Detected; U Opiates Screen Not Detected; U Oxycodone Screen Not Detected; U Phencyclidine Screen Not Detected
[2023-05-28 17:36] LABS: Bacteria Few /hpf; Red Blood Cells, Urine 0-2 /hpf (0-2); Squamous Epithelial Cells Mod /hpf (Few); White Blood Cells, Urine 0-2 /hpf (0-5)
[2023-05-28 18:38] LABS: Influenza A, PCR NEGATIVE (NEGATIVE); Influenza B, PCR NEGATIVE (NEGATIVE); Resp Syncytial Virus, PCR NEGATIVE (NEGATIVE); SARS-Cov-2 (COVID-19) PCR, MMC NEGATIVE (NEGATIVE)
[2023-05-29 20:35] VITALS: BP 109/74
[2023-05-30] MEDS ORDERED: HALO5 PO (12:54)
[2023-05-30] MEDS ORDERED: Klonopin0.5 MG PO (12:54)
== END 2023-05-30 13:41 | disposition home or self-care (01) ==
LOC: ER 14:36 → EOR 14:37
PROVIDERS: Student in an Organized Health Care Education/Training Program; ADMIT Student in an Organized Health Care Education/Training Program
DX: F20.2 Catatonic schizophrenia (principal); Z20.822 Contact with and (suspected) exposure to COVID-19
CPT/HCPCS: 0241U; 80053; 81001; 81025; 83735; 84443; 85025; 93005; 93010; 96372; 99285-25; A9270; G0378; G0480; J2060

== ENCOUNTER 2023-08-02 10:59 | Observation (INO) | payer OTHER ==
[~2023-08-02] VITALS: Ht 162.6 cm; Wt 63.5 kg
[~2023-08-02 10:59] MED LIST changes: +Klonopin0.5 MG PO
[2023-08-02 11:43] LABS: BASOPHILS ABSOLUTE AUTO 0.03 K/mm3 (0.00-0.23); BASOPHILS PERCENT AUTO 0 % (0-2); EOSINOPHILS ABSOLUTE AUTO 0.08 K/mm3 (0.00-0.68); EOSINOPHILS PERCENT AUTO 1 % (0-6); Hematocrit 45.2 % (33.0-51.0); Hemoglobin 15.3 g/dL (11.5-16.0); IMMATURE GRAN ABSOLUTE AUTO 0.02 K/mm3 (0.00-0.10); IMMATURE GRAN PERCENT AUTO 0 % (0-1); LYMPHOCYTES ABSOLUTE AUTO 1.84 K/mm3 (0.84-5.20); LYMPHOCYTES PERCENT AUTO 25 % (21-46); MONOCYTES ABSOLUTE AUTO 0.56 K/mm3 (0.16-1.47); MONOCYTES PERCENT AUTO 8 % (4-13); Mean Corpuscular HGB Conc 33.8 g/dL (31.5-36.5); Mean Corpuscular Volume 86 fL (80-100); Mean Platelet Volume 10.6 fL (9.1-12.4); NEUTROPHILS ABSOLUTE AUTO 4.76 K/mm3 (1.96-9.15); NEUTROPHILS PERCENT AUTO 65 % (41-73); Platelet Count 241 K/mm3 (150-400); RDW Coefficient Variation 12.8 % (11.7-14.2); RDW Standard Deviation 39.5 fL (35.1-46.3); Red Blood Cell Count 5.28 M/mm3 (3.80-5.20); White Blood Cell Count 7.29 K/mm3 (4.00-11.30)
[2023-08-02 12:07] LABS: Ethanol (Alcohol), Blood, Med <3 mg/dL; Salicylate <1.7 mg/dL (2.8-20.0)
[2023-08-02 12:14] LABS: Alanine Aminotransfer (ALT/SGP 17 U/L (12-78); Albumin, Blood 3.9 g/dL (3.4-5.0); Alk Phos 76 U/L (50-136); Anion Gap 5 mmol/L (6-16); Aspartate Aminotrans (AST/SGOT 26 U/L (12-37); Bilirubin, Total 0.9 mg/dL (0.1-1.0); Blood Urea Nitrogen 16 mg/dL (8-24); Bun/Creatinine Ratio 20.5 (12.0-20.0); CO2, Blood 28 mmol/L (21-32); Calcium, Blood 9.5 mg/dL (8.5-10.1); Chloride, Blood 110 mmol/L (98-108); Creatinine, Blood 0.78 mg/dL (0.40-1.00); Glomerular Filtration Rate 104 (60-); Glucose, Blood 88 mg/dL (70-99); Potassium, Blood 3.8 mmol/L (3.5-5.5); Sodium, Blood 143 mmol/L (136-145); Total Protein, Blood 7.9 g/dL (6.4-8.2)
[2023-08-02 12:15] LABS: Acetaminophen, Random <2.0 ug/mL (10.0-30.0)
[2023-08-02 19:25] LABS: Influenza A, PCR NEGATIVE (NEGATIVE); Influenza B, PCR NEGATIVE (NEGATIVE); Resp Syncytial Virus, PCR NEGATIVE (NEGATIVE); SARS-Cov-2 (COVID-19) PCR, MMC NEGATIVE (NEGATIVE)
[2023-08-03 13:49] LABS: U Amphetamine Screen Not Detected; U Barbituate Screen Not Detected; U Benzodiazapine Screen Not Detected; U Buprenorphine Screen Not Detected; U Cannabinoids Screen Not Detected; U Cocaine Screen Not Detected; U Methadone Screen Not Detected; U Methamphetamine Screen Not Detected; U Opiates Screen Not Detected; U Oxycodone Screen Not Detected; U Phencyclidine Screen Not Detected
[2023-08-03 13:55] LABS: Appearance, Urine Clear (Clear); Color, Urine Amber (P-Yellow); Source, Urine Clean Catch
[2023-08-03 13:56] LABS: Leukocyte Esterase, Urine 2+ (Neg); Nitrite, Urine Neg (Neg); Protein, Urine 2+ (Neg)
[2023-08-03 13:57] LABS: Bilirubin, Urine 1+ (Neg); Blood, Urine Neg (Neg); Glucose Qualitative, Urine Neg (Neg); Ketones, Urine 2+ (Neg); Urobilinogen, Urine 1+ (Normal)
[2023-08-03 14:00] LABS: Bacteria Many /hpf; Red Blood Cells, Urine 0-2 /hpf (0-2); Squamous Epithelial Cells Mod /hpf (Few)
[2023-08-03] MEDS ORDERED: LORazepam 1 MG Tab PO SCH (14:00)
[2023-08-04] MEDS ORDERED: ARIPiprazole 10 MG Tab PO SCH (16:00)
[2023-08-06 10:07] LABS: Source, Urine Clean Catch
[2023-08-06 10:11] LABS: Appearance, Urine Clear (Clear); Bilirubin, Urine Neg (Neg); Blood, Urine Neg (Neg); Glucose Qualitative, Urine Neg (Neg); Ketones, Urine Neg (Neg); Leukocyte Esterase, Urine Neg (Neg); Nitrite, Urine Neg (Neg); Protein, Urine Neg (Neg); Specific Gravity, Urine 1.015 (1.003-1.022); Urobilinogen, Urine NORM (Normal)
[2023-08-06 10:12] LABS: Color, Urine No Color (P-Yellow)
[2023-08-07] MEDS ORDERED: Acetaminophen 325 MG TABLET PO ONE (09:50)
[2023-08-07] MEDS ORDERED: Melatonin 5 MG Tablet PO ONE (19:50)
[2023-08-08] MEDS ORDERED: ARIPiprazole 5 MG Tab PO SCH (09:00)
[2023-08-08 16:34] LABS: BASOPHILS ABSOLUTE AUTO 0.05 K/mm3 (0.00-0.23); BASOPHILS PERCENT AUTO 1 % (0-2); EOSINOPHILS ABSOLUTE AUTO 0.19 K/mm3 (0.00-0.68); EOSINOPHILS PERCENT AUTO 2 % (0-6); Hematocrit 41.6 % (33.0-51.0); Hemoglobin 13.7 g/dL (11.5-16.0); IMMATURE GRAN ABSOLUTE AUTO 0.04 K/mm3 (0.00-0.10); IMMATURE GRAN PERCENT AUTO 1 % (0-1); LYMPHOCYTES ABSOLUTE AUTO 2.28 K/mm3 (0.84-5.20); LYMPHOCYTES PERCENT AUTO 26 % (21-46); MONOCYTES ABSOLUTE AUTO 0.72 K/mm3 (0.16-1.47); MONOCYTES PERCENT AUTO 8 % (4-13); Mean Corpuscular HGB 28.8 pg (26.0-34.0); Mean Corpuscular HGB Conc 32.9 g/dL (31.5-36.5); Mean Corpuscular Volume 88 fL (80-100); NEUTROPHILS ABSOLUTE AUTO 5.35 K/mm3 (1.96-9.15); NEUTROPHILS PERCENT AUTO 62 % (41-73); Platelet Count 236 K/mm3 (150-400); RDW Coefficient Variation 12.8 % (11.7-14.2); RDW Standard Deviation 40.7 fL (35.1-46.3); Red Blood Cell Count 4.75 M/mm3 (3.80-5.20); White Blood Cell Count 8.63 K/mm3 (4.00-11.30)
[2023-08-09] MEDS ORDERED: ABILIFY MYCITE15 M2 PO (09:16)
[2023-08-09 12:00] VITALS: BP 118/74
== END 2023-08-10 13:00 | disposition home or self-care (01) ==
LOC: ER 10:59 → EOR 11:00
PROVIDERS: Family Medicine; ADMIT Emergency Medicine
DX: F25.9 Schizoaffective disorder, unspecified (principal); F31.9 Bipolar disorder, unspecified; K21.9 Gastro-esophageal reflux disease without esophagitis; Z87.891 Personal history of nicotine dependence; Z88.0 Allergy status to penicillin; Z88.1 Allergy status to other antibiotic agents; Z88.5 Allergy status to narcotic agent
CPT/HCPCS: 0241U; 80053; 81001; 81003; 81025; 85025; 86592; 87086; 93005; 93010; 99285-25; A9270; G0378; G0480

== ENCOUNTER 2023-08-31 10:05 | Emergency (ER) | payer OTHER ==
[~2023-08-31] VITALS: Ht 162.6 cm; Wt 65.8 kg
[~2023-08-31 10:05] MED LIST changes: +ABILIFY MYCITE15 M2 PO
[2023-08-31 10:09] VITALS: BP 125/81
[2023-08-31 10:34] LABS: BASOPHILS ABSOLUTE AUTO 0.04 K/mm3 (0.00-0.23); BASOPHILS PERCENT AUTO 1 % (0-2); EOSINOPHILS ABSOLUTE AUTO 0.08 K/mm3 (0.00-0.68); EOSINOPHILS PERCENT AUTO 1 % (0-6); Hematocrit 44.1 % (33.0-51.0); Hemoglobin 14.4 g/dL (11.5-16.0); IMMATURE GRAN ABSOLUTE AUTO 0.01 K/mm3 (0.00-0.10); IMMATURE GRAN PERCENT AUTO 0 % (0-1); LYMPHOCYTES ABSOLUTE AUTO 1.54 K/mm3 (0.84-5.20); LYMPHOCYTES PERCENT AUTO 20 % (21-46); MONOCYTES ABSOLUTE AUTO 0.59 K/mm3 (0.16-1.47); MONOCYTES PERCENT AUTO 8 % (4-13); Mean Corpuscular HGB Conc 32.7 g/dL (31.5-36.5); Mean Corpuscular Volume 89 fL (80-100); Mean Platelet Volume 9.8 fL (9.1-12.4); NEUTROPHILS ABSOLUTE AUTO 5.52 K/mm3 (1.96-9.15); NEUTROPHILS PERCENT AUTO 71 % (41-73); Platelet Count 283 K/mm3 (150-400); RDW Coefficient Variation 14.5 % (11.7-14.2); RDW Standard Deviation 46.7 fL (35.1-46.3); Red Blood Cell Count 4.97 M/mm3 (3.80-5.20); White Blood Cell Count 7.78 K/mm3 (4.00-11.30)
[2023-08-31 11:11] LABS: Albumin, Blood 4.1 g/dL (3.4-5.0); Albumin/Globulin Ratio 1.1 (0.8-1.8); Bilirubin, Total 0.5 mg/dL (0.1-1.0); Bun/Creatinine Ratio 15.9 (12.0-20.0); Calcium, Blood 9.6 mg/dL (8.5-10.1); Creatinine, Blood 0.75 mg/dL (0.40-1.00); Globulin, Blood 3.7 g/dL (2.2-4.0); Potassium, Blood 4.1 mmol/L (3.5-5.5); Total Protein, Blood 7.8 g/dL (6.4-8.2)
[2023-09-15] MEDS ORDERED: ABILIFY MYCITE15 M2 PO (15:13)
== END 2023-08-31 13:21 | disposition left against medical advice (07) ==
LOC: ER 10:05
PROVIDERS: Student in an Organized Health Care Education/Training Program
DX: Z53.21 Procedure and treatment not carried out due to patient leaving prior to being seen by health care provider (principal)
CPT/HCPCS: 36415; 80053; 85025; 99281

== ENCOUNTER 2023-12-02 13:45 | Emergency (ER) | payer OTHER ==
[~2023-12-02] VITALS: Ht 167.6 cm; Wt 59.0 kg
[2023-12-02 14:22] VITALS: BP 112/84
[2023-12-02] MEDS ORDERED: ABILIFY MYCITE15 M2 PO (14:23)
== END 2023-12-02 14:29 | disposition home or self-care (01) ==
LOC: ER 13:45
DX: Z76.0 Encounter for issue of repeat prescription (principal); Z88.1 Allergy status to other antibiotic agents; Z88.0 Allergy status to penicillin; Z88.8 Allergy status to other drugs, medicaments and biological substances; Z79.899 Other long term (current) drug therapy; K21.9 Gastro-esophageal reflux disease without esophagitis; Z87.891 Personal history of nicotine dependence
CPT/HCPCS: 99281

== ENCOUNTER 2023-12-08 16:39 | Emergency (ER) | payer OTHER ==
[~2023-12-08] VITALS: Ht 160 cm; Wt 56.7 kg
[2023-12-08 16:51] VITALS: BP 131/98
== END 2023-12-08 17:35 | disposition home or self-care (01) ==
LOC: ER 16:39
DX: T74.21XA Adult sexual abuse, confirmed, initial encounter (principal); Z88.8 Allergy status to other drugs, medicaments and biological substances; Z88.1 Allergy status to other antibiotic agents; Z88.0 Allergy status to penicillin; Z79.899 Other long term (current) drug therapy; K21.9 Gastro-esophageal reflux disease without esophagitis; F17.210 Nicotine dependence, cigarettes, uncomplicated
CPT/HCPCS: 99284

== ENCOUNTER → 2023-12-08 | Outpatient (CLI) | payer OTHER ==
[2023-12-11 08:11] LABS: HIV 1,2 COMBO ANTIGEN/ANTIBODY Negative (Negative)
[2023-12-11 08:54] LABS: HEPATITIS B SURFACE ANTIGEN Negative (Negative)
[2023-12-11 11:37] LABS: HEPATITIS C AB CIA INTERP Negative (Negative); HEPATITIS C ANTIBODY CIA INDEX <0.02 IV
[2023-12-14 19:00] LABS: APTIMA MEDIA TYPE Urine; C. TRACHOMATIS BY TMA Negative (Negative); N. GONORRHOEAE BY TMA Negative (Negative); SPECIMEN SOURCE Urine; T. VAGINALIS BY TMA Negative (Negative)
== END | disposition home or self-care (01) ==
LOC: LAB 18:41 → LAB SHORT 18:41
PROVIDERS: Registered Nurse Community Health
DX: Z11.3 Encounter for screening for infections with a predominantly sexual mode of transmission (principal); Z20.2 Contact with and (suspected) exposure to infections with a predominantly sexual mode of transmission
CPT/HCPCS: 86592; 86803; 87340; 87389; 87491; 87591; 87661

== ENCOUNTER 2023-12-14 13:18 | Emergency (ER) | payer OTHER ==
[~2023-12-14] VITALS: Ht 160 cm; Wt 56.7 kg
[2023-12-14 13:22] VITALS: BP 109/67
[2023-12-14] MEDS ORDERED: ABILIFY MYCITE15 M2 PO (13:24)
== END 2023-12-14 14:05 | disposition home or self-care (01) ==
LOC: ER 13:18
DX: K21.9 Gastro-esophageal reflux disease without esophagitis (principal); Z76.0 Encounter for issue of repeat prescription; Z88.1 Allergy status to other antibiotic agents; Z88.0 Allergy status to penicillin; Z88.8 Allergy status to other drugs, medicaments and biological substances; Z79.899 Other long term (current) drug therapy; F17.210 Nicotine dependence, cigarettes, uncomplicated
CPT/HCPCS: 99281

== ENCOUNTER 2023-12-26 11:29 | Observation (INO) | payer OTHER ==
[~2023-12-26] VITALS: Ht 165.1 cm; Wt 49.9 kg
[2023-12-26 11:57] VITALS: BP 110/87
[2023-12-26] MEDS ORDERED: ABILIFY MYCITE10 M2 PO (12:02)
[2023-12-26 12:27] LABS: BASOPHILS ABSOLUTE AUTO 0.04 K/mm3 (0.00-0.23); BASOPHILS PERCENT AUTO 1 % (0-2); EOSINOPHILS ABSOLUTE AUTO 0.18 K/mm3 (0.00-0.68); EOSINOPHILS PERCENT AUTO 3 % (0-6); Hematocrit 48.2 % (33.0-51.0); Hemoglobin 15.4 g/dL (11.5-16.0); IMMATURE GRAN ABSOLUTE AUTO 0.02 K/mm3 (0.00-0.10); IMMATURE GRAN PERCENT AUTO 0 % (0-1); LYMPHOCYTES ABSOLUTE AUTO 1.56 K/mm3 (0.84-5.20); LYMPHOCYTES PERCENT AUTO 23 % (21-46); MONOCYTES ABSOLUTE AUTO 0.41 K/mm3 (0.16-1.47); MONOCYTES PERCENT AUTO 6 % (4-13); Mean Corpuscular HGB 27.9 pg (26.0-34.0); Mean Corpuscular Volume 87 fL (80-100); Mean Platelet Volume 10.5 fL (9.1-12.4); NEUTROPHILS ABSOLUTE AUTO 4.64 K/mm3 (1.96-9.15); NEUTROPHILS PERCENT AUTO 68 % (41-73); Platelet Count 238 K/mm3 (150-400); RDW Coefficient Variation 14.5 % (11.7-14.2); RDW Standard Deviation 46.4 fL (35.1-46.3); Red Blood Cell Count 5.52 M/mm3 (3.80-5.20); White Blood Cell Count 6.85 K/mm3 (4.00-11.30)
[2023-12-26 12:48] LABS: Ethanol (Alcohol), Blood, Med <3 mg/dL; Salicylate <1.7 mg/dL (2.8-20.0)
[2023-12-26 12:53] LABS: Alanine Aminotransfer (ALT/SGP 31 U/L (12-78); Albumin, Blood 4.5 g/dL (3.4-5.0); Albumin/Globulin Ratio 1.1 (0.8-1.8); Alk Phos 112 U/L (50-136); Anion Gap 6 mmol/L (3-11); Aspartate Aminotrans (AST/SGOT 36 U/L (12-37); Bilirubin, Total 1.3 mg/dL (0.1-1.0); Blood Urea Nitrogen 8 mg/dL (8-24); Bun/Creatinine Ratio 10.3 (12.0-20.0); CO2, Blood 29 mmol/L (21-32); Calcium, Blood 9.7 mg/dL (8.5-10.1); Chloride, Blood 110 mmol/L (98-108); Creatinine, Blood 0.78 mg/dL (0.40-1.00); Globulin, Blood 4.2 g/dL (2.2-4.0); Glomerular Filtration Rate 104 (60-); Glucose, Blood 112 mg/dL (70-99); Sodium, Blood 141 mmol/L (136-145); Total Protein, Blood 8.7 g/dL (6.4-8.2)
[2023-12-26 12:54] LABS: Acetaminophen, Random <2.0 ug/mL (10.0-30.0)
[2023-12-26] MEDS ORDERED: ARIPiprazole 10 MG Tab PO ONE (13:40)
[2023-12-26] MEDS ORDERED: LORazepam 1 MG Tab PO ONE (13:40)
== END 2023-12-26 14:17 | disposition home or self-care (01) ==
LOC: ER 11:29 → EOR 11:30 → EDBEDREQ 12:31 → EDBEDREQSVC 12:31 → EOR 14:17
PROVIDERS: Physician Assistant; ADMIT Emergency Medicine
DX: F20.9 Schizophrenia, unspecified (principal); Z88.0 Allergy status to penicillin; Z88.1 Allergy status to other antibiotic agents; Z59.00 Homelessness unspecified; Z79.899 Other long term (current) drug therapy
CPT/HCPCS: 80053; 85025; 99284; A9270; G0378; G0480

== ENCOUNTER 2024-02-21 16:34 | Inpatient (IN) | payer OTHER ==
[~2024-02-21 16:34] MED LIST changes: +ABILIFY MYCITE10 M2 PO
[2024-02-21] MEDS ORDERED: DiphenhydrAMINE HCl 50 MG/ML 1ML Vial IM PRN (18:20)
[2024-02-21] MEDS ORDERED: DiphenhydrAMINE HCl 50 MG Cap PO PRN (18:20)
[2024-02-21] MEDS ORDERED: Haloperidol 5 MG Tab PO PRN (18:20)
[2024-02-21] MEDS ORDERED: Haloperidol Lactate Inj. 5 MG/ML Injection IM PRN (18:20)
[2024-02-21] MEDS ORDERED: LORazepam 2 MG Tab PO PRN ×2 (18:20)
[2024-02-21] MEDS ORDERED: LORazepam 2 MG/ML 1ML Injection IM PRN (18:20)
[2024-02-21] MEDS ORDERED: DiphenhydrAMINE HCl 50 MG/ML 1ML Vial ONE (18:27)
[2024-02-21] MEDS ORDERED: LORazepam 2 MG/ML 1ML Injection ONE (18:27)
[2024-02-21] MEDS ORDERED: Haloperidol Lactate Inj. 5 MG/ML Injection ONE (18:28)
--- NOTE | 2024-02-21 19:14 | NUR ---
PT ARRIVED TO DEPT AT 1815 FROM ER WITH SECURITY AND MHA. PT AGGITATED UPON ARRIVAL WITH DISORGANIZED THOUGHTS AND TAGENTAL SPEECH. STAFF ATTEMPTED TO ORIENT PT TO UNIT AND DE-ESCALATE THE SITUATION. STAFF X 5 TO ASSIST AND PT MEDICATED WITH IM MEDICATIONS. CORBIN FRY ASSUMING CARE OF PT.
--- NOTE | 2024-02-21 19:23 | NUR ---
PT UNABLE TO GO THROUGH/SIGN BELONGINGS: RN AND I SIGNED PT BELONGINGS AND TAGGED/LABELED BIN:
--- NOTE | 2024-02-22 00:09 | NUR ---
PATIENT RECEIVED ATIVAN,HALDOL AND BENEDRYL IM AT 1845. UNABLE TO COMMUNICATE WITH STAFF OR PATIENTS ALTHOUGH RESPONDING TO INTERNAL STIMULI CONSTANTLY. DID NOT GO TO BED UNTIL APPROXIMATELY 0, AND HAS NOT WOKEN UP SINCE. sHE DID EAT A BAG OF CHIPS AND DRINK A CUP OF WATER JUST BEFORE GOING TO BED. WILL CONTINUE CLOSE MONITORING. DUE TO THE ABOVE FACTS, HER INITIAL INTAKE HAS NOT BEEN COMPLETED.
--- NOTE | 2024-02-22 02:52 | NUR ---
patient continues to sleep through the night. Changing positions frequently. will continue close monitoring
--- NOTE | 2024-02-22 06:20 | NUR ---
Patient slept all night after finally laying down around 2100. total sleep hours to this point 9 hours. Prior to sleep, patient was unable to communicate wit staff and appeared to be constantly be responding to internal stimuli.
[2024-02-22] MEDS ORDERED: ARIPiprazole 10 MG Tab PO SCH (09:00)
[2024-02-22 09:13] VITALS: BP 103/74
[2024-02-22] MEDS ORDERED: ARIPiprazole 300 MG SUSER.SYR IM ONE (13:00)
--- NOTE | 2024-02-22 14:04 | NUR ---
SINCE THE BEGINNING OF THE SHIFT PATIENT HAS BEEN AT THE NURSING STATION. SHE CONTINUES TO SAY THE SAME THINGS. I NEED FREEDOM HE IS MY , I NEED TO GET OUT OF HERE, CAN YOU TALK TO MY PATIENT CARE TECHNICIAN INSTRUCTOR? I NEED TO CALL MY DAD. PT IS UNABLE TO RETAIN THAT WHAT HAS BEEN SAID AND REPEATED. YOU WLL HAVE TO HAVE THE DR TO LET YOU GO. THIS ISN'T RIGHT. ENCOURAGED TO GO INTO GROUPS BUT DOES NOT. PATIENT IS UNABLE/REFUSES TO SIGN PAPERWORK FOR ADMISSION. SHE IS UN COOPERATIVE WITH GUIDENCE. SHE GETS TEARFUL AT TIMES. WOULD NOT TAKE HER MORNING PILLS UNTIL LATER. SHE IS NOT COOPERATIVE WITH STAFF. WILL CONTINUE TO WORK WITH PATIENT.
--- NOTE | 2024-02-22 16:28 | NUR ---
Pt Important Information Pt CPS worker reached out this am and was able to give us updated information and history on pts situation. was in long-term over the weekend Our records did not have current information on how to contact her . We have the correct phone number now for . [place]. # [phone]. plans to come visit tomorrow. He is available by phone.
--- NOTE | 2024-02-22 17:33 | NUR ---
SHIFT SUMMARY; PT HAS CONTINUED TO BE UNCOOPERATIVE AND DELUSOINAL STILL ASK THE SAME QUESTIONS THOUGH OUT THE DAY. FREEDOM CALLED AND SPOKE TO HER. SHE CONSTANTLY TRYING TO USE THE PHONE. DOES EAT HER MEALS, BUT DOES NOT PARTICIPATE IN GROUPS. STILL STANDS AT THE NURSES STATION.THINKS SHE HAS A VISIT WITH HER CHILDREN, BUT ACCORDING FILM SOUND COORDINATOR VISITATION IS NOT ABLE TO SEE THEM UNDER THESE CIRCUMSTANCES.
--- NOTE | 2024-02-23 04:00 | NUR ---
ASSUMED CARE FROM PRIOR SHIFT. PATIENT STANDS BY THE NURSING DESK MOST OF THE SHIFT. SHE WALKS AROUND TALKING TO HERSELF IN A QUIET VOICE. SHE IS UNABLE TO PARTICIPATE WITH ASSESSMENT, CONVERSATION, ACTIVITIES AND QUESTIONS. SHE DEMONSTRATES: DISORGANIZED THOUGHS AND SPEECH. SHE IS OFTEN DELUSIONAL ASKING IF "I HAVE HER CHILDREN AND DID I HIDE HER IN A ROOM?'. SHE IS SEEMINGLY UNABLE TO CHANGE HER UNDERGARMENTS. RN TRIED TO GET HER TO CHANGE UNDERWEAR AND MENSTRAL PADDING HOWEVER; THIS WAS UNSUCSESSFUL SHAY COULD NOT UNDERSTAND AND WE DID NOT WANT TO TRAMATIZE HER. I DID TAKE HER TO HER ROOM AND REORIENT HER. SHE WAS ABLE TO WALK TO HER ROOM A FEW MINUTES LATER AND GET INTO THE RIGHT BED. SHE DID SLEEP THROUGH THE NIGHT WITHOUT ANY BEHAVIORS, WONDERING OR ISSUES. WE WILL CONTINUE TO DO 15 SAFETY CHECKS.
--- NOTE | 2024-02-23 05:04 | NUR ---
PATIENT CONTINES TO SLEEP THROUGH THE NIGHT. NO NOTED ISSUES OR BEHAVIORS.
[2024-02-23 08:45] VITALS: BP 110/77
[2024-02-23] MEDS ORDERED: ARIPiprazole 300 MG SUSER.SYR IM ONE (10:33)
--- NOTE | 2024-02-23 11:42 | NUR ---
UP AT 0730. GIVEN MEDS DEFENSIVE WANTS TO GO HOME AND SAYS THAT SHE IS GOING HOME. TRIED TALKING TO HER AND SHE THEN GETS ANGERYTONE. SHE CLAIMS THAT SHE HASN'T SEEN A DR YET. REMINDED HER THAT SHE SEEN HIM YESTERDAY. A/O X2. CLAIMS "I HEADANY BRAIN, I DID GET IT HERE" PT NEEDS LOTS OF GUIDENCE AND REINFORCEMENT. ALSO DIRECTIONS.
--- NOTE | 2024-02-23 11:54 | NUR ---
im ABILIFY 300MG GIVEN TODAY PER DR LEWIS.
--- NOTE | 2024-02-23 17:34 | NUR ---
SHIFT SUMMARY; AFTER HAVING IM OF ABILIFY OF 300MG, PATIENT HAS BEEN LESS NEEDY. IS ABLE TO TELL STAFF WHEN SHE NEEDS TO CHANGE HER PADS. SEEMS MORE ALERT. CAME TO VISIT HER. DR LEWIS SEEN PT TODAY, PT THRET TO SLAP THE DENIES TO BE SI. STATES OVER ANDOVER" I HAVE TO GET OUT OF HERE" DID PARTICIPATE IN GROUPS TODAY. SHOWERED WITH COACHNG TODAY. ATE WELL ON HER MEALS. SHOWS TO BE PROGRESSING FOR THE BETTER AFTER THE IM. WILL CONTINUE TO MONITOR
--- NOTE | 2024-02-23 22:01 | NUR ---
ASSUMED CARE FROM PRIOR SHIFT. PATIENT UP WALKING AROUND. SHE IS EATING A SNACK. SHE DOES TALK TO OTHER PATIENTS WORD SALAD CONVERSATION. MOST OF THE PATIENTS DON'T ENGAGE HER SHE OFTEN GETS AGGITATED AND THEY DON'T UNDERSTAND WHAT SHE IS SAYING? SHE IS STILL NOT CLEAR ENOUGH TO DO AN ASSESSMENT ON. SHE HANGS OUT AT THE NURSING STATION WANTING TO CALL: ROTOR BLADE INSTALLER. SPOUSE, SOME SORT OF RELIGOUS HOUSE. SHE DID GET AGITATED WHEN I TRIED TO REDIRECT HER AND TOLD HER PHONE HOURS ARE CLOSED. SHAY TENDS TO GET MORE AGITATED WITH LONG CONVERSATIONS/DIRECTIONS. IT IS BETTER AT PRESENT, TO KEEP YES AND NO CONVERSATION. SHE DID GO TO BED ON HER OWN. SHE DOES SEEM A BIT MORE CLEAR THIS SHIFT. SHE CONTINUES TO HAVE DISORGANIZED THOUGHTS/CONVERSATION. WE WILL CONTINUE TO MONITOR WITH SAFETY EVERY 15 MIN.
--- NOTE | 2024-02-24 04:08 | NUR ---
PATIENT CONTINUES TO SLEEP THROUGH THE NIGHT.NO NOTED ISSUES OR BEHAVIORS. SHE IS STILL NOT ABLE TO ENGAGE IN MEANINGFUL CONVERSATION. SHE IS MORE CLEAR THIS SHIFT, NOT FLAT.
[2024-02-24 08:37] VITALS: BP 109/80
--- NOTE | 2024-02-24 17:01 | NUR ---
SHIFT SUMMARY: PT ALERT AND ORIENTED TO SELF. DISORGANIZED CONVERSATION WITH MOMENTS OF CLAIRTY OFF ON ON THROUGHOUT SHIFT. SHE PACED IN THE HALLWAY AND STOOD NEAR THE NURSES STATION OFTEN. SHE SPOKE WITH THE POLICE CHIEF DEPUTY, [place]. SHE REQUESTED TO CALL HER DAD BUT WAS UNABLE TO REMEMBER HIS NUMBER. NOTED TANGENTIAL SPEECH AND PROLONGED DIRECT EYE CONTACT. PT OFFERED PRN FOR AGGITATION WHICH SHE DECLINED.
--- NOTE | 2024-02-24 20:03 | NUR ---
Herberth declined perfoming vitals and is responding to internal stimuli.
--- NOTE | 2024-02-25 04:08 | NUR ---
PT IS VISIBLE ON THE UNIT BUT WITHDRAWN FROM PEERS. HYGIENE POOR BUT WAS ENCOURAGED. PT CONTINUES TO BE DISORGANIZED AND PARANOID, WELL SOMEWHAT RESISTANT TO REDIRECTION. PT HAS POOR MEMORY, INSIGHT AND JUDGEMENT AT THIS TIME. NO HS MEDICATIONS ORDERED. PT DENIES SI/HI AND AVH. PT IS CURRENTLY IN BED RESTING COMFORTABLY WITH EYES CLOSED IN NAD. RESPIRATIONS EVEN AND UNLABORED. CHECKS DONE Q15.
--- NOTE | 2024-02-25 09:45 | NUR ---
PT AWAKE AND HAS BEEN PACING IN THE HALLWAY. PT APPEARS AGGITATED THIS AM, DISORGANIZED CONVERSATION. SHE DECLINED BREAKFAST BUT DID EAT A HALF OF A SANDWICH AND HAS BEEN PROVIDED WITH AN ENSURE. SHE HAS REFUSED HER MORNING MEDICATIONS WHICH THIS RN HAS OFFERED MULTIPLE TIMES.
--- NOTE | 2024-02-25 16:58 | NUR ---
SHIFT SUMMARY: PT REMAINED ALERT THROUGHOUT SHIFT. CONTINUES WITH DISORGANIZED THOUGHTS AND APPEARS TO BE RESPONDING TO INTERNAL STIMULI. DAILY MEDS OFFERED MULTIPLE TIMES DURING THE DAY BUT SHE REFUSED THEM. SHE ATE A SANDWICH, POPCORN, ICE CREAM AND DRANK FLUIDS.
--- NOTE | 2024-02-26 03:58 | NUR ---
PT IS VISIBLE ON THE UNIT BUT WITHDRAWN FROM PEERS. HYGIENE FAIR. PT CONTINUES TO BE CONFUSED AND DISORGANIZED, WITH POOR MEMORY AND PROCESSING. NO SI/HI NOTED. PT HAD NO HS MEDICATIONS ORDERED. PT WENT TO BED EARLY THIS EVENING AND HAS BEEN RESTING COMFORTABLY WITH EYES CLOSED IN NAD. RESPIRATIONS EVEN AND UNLABORED. CHECKS DONE Q15.
--- NOTE | 2024-02-26 08:55 | NUR ---
PT APPEARS TO BE SLEEPING AT THIS TIME. WILL OFFER AM MEDS WHEN SHE IS AWAKE.
--- NOTE | 2024-02-26 10:12 | NUR ---
PT AWOKE AND CAME TO NURSES STATION WHILE THE PROVIDER WAS HERE. HE SPOKE WITH HER AND SHE AGREED TO TAKING HER MEDICATIONS TODAY. HE DISCUSSED HER PLAN OF CARE WITH HER, PT EXHIBITED SOME UNDERSTANDING INITIALLY. PROVIDED WITH BREAKFAST AND SHE IS NOW IN THE DAY ROOM WITH STAFF AND PEERS.
[2024-02-26 12:12] VITALS: BP 106/76
--- NOTE | 2024-02-26 16:45 | NUR ---
SHIFT SUMMARY: PT REMAINED CALM THROUGH OUT SHIFT. DISORGANIZED THOUGHTS BUT SEEMS TO BE HAVING MORE CLAIRTY TODAY. SHE HAS BEEN ABLE TO ENGAGE IN SHORT CONVERSATIONS WITH STAFF. SHE DISCUSSED WANTING TO GO HOME AND IS AWARE THAT SHE IS ON A HOLD. ENCOURAGED HER TO CONTINUE WITH HER MEDICATIONS TO STAY ON TRACK FOR DISCHARGE.
--- NOTE | 2024-02-26 21:30 | NUR ---
Patient remembers going to [facility] to see Dr. Salvador around the time she was admitted to discuss her medications. According to Mamie, the RX was no longer valid as her insurance was cancelled (which had been carried by her .) She does not admit or remember being off her medications.
[2024-02-27 03:00] VITALS: BP 105/24
--- NOTE | 2024-02-27 04:58 | NUR ---
Patient was very conversive with this RN prior to bedtime. She was insisting that her father be called, however his number could not be obtained. Tried her several times last night. She was quite worried about his whereabouts. No SI,HI or AVTH noted on assessment. She did have a moment of clarity about the name of her psychiatrist (Dr. Salvador), and to her recollection, she had stopped taking her medications due to the cancellation of her insurance. will continue close monitoring
[2024-02-27 09:11] VITALS: BP 110/77
--- NOTE | 2024-02-27 17:03 | NUR ---
SHIFT SUMMARY: PT HAS BEEN ENGAGING WITH STAFF, VERY FOCUSED ON GOING HOME. SHE IS ALERT AND ORIENTED TO SELF AND LOCATION. SHE WAS COOPERATIVE WITH CARE AND COMPLIANT WITH MEDICATIONS. SPOKE WITH BAG HANGER, CHANTAL.
[2024-02-27] MEDS ORDERED: Melatonin 3 MG Tab PO SCH (21:00)
--- NOTE | 2024-02-28 05:44 | NUR ---
Patient was much more lucid last night. no SI,HI or AVTH. Agreed to take melatonin at HS. Spent much time conversing with new peer who moved in in the afternoon. Of concern, the patient's tongue was protruding in and out when she and this RN were talking last night. It appeared she was unaware.
[2024-02-28 08:31] VITALS: BP 107/68
--- NOTE | 2024-02-28 10:56 | NUR ---
PT ALERT AND COOPERATIVE WITH CARE. COMPLIANT WITH MEDICATIONS. HAS PARTICIPATED IN MEALS AND GROUPS. UPDATED ON DISCHARGE PLAN FOR THIS AFTERNOON, RIDE IS SET WITH [facility] FROM [facility] AT 4:30.
--- NOTE | 2024-02-28 17:24 | NUR ---
DISCHARGE: PT DISCHARGED BACK TO [facility]. STAFF FROM [facility] TEAM PROVIDED TRANSPORT. PT PROVIDED WITH CLEAN CLOTHING FOR DISCHARGE. PT IN GOOD SPIRITS AT TIME OF DISCHARGE. EDUCATED ON DISCHARGE INSTRUCTIONS AND ENCOURAGED PT TO RETURN TO ER OR CALL THE CRISIS TEAM IF SHE STARTS TO FEEL SYMPTOMS RETURNING. PT AWARE OF UPCOMING APPOINTMENTS AND NEED TO INFORMATION SYSTEMS ADMINISTRATOR HER RX. SHE AMBULATED OUT OF DEPT WITH BELONGINGS, DINNER TRAY AND DISCHARGE INSTRUCTIONS.
--- NOTE | 2024-02-28 17:29 | NUR ---
Pt Discharge Patient has had belongings returned to their possession. Nothing in safe was locked away. Pt left at 1724 with [facility] team ride to the navigation center.
== END 2024-02-28 17:24 | disposition home or self-care (01) | DRG 885 ==
LOC: BHU 16:34
PROVIDERS: ADMIT Psychiatry & Neurology Psychiatry
DX: F20.0 Paranoid schizophrenia (principal); K21.9 Gastro-esophageal reflux disease without esophagitis; Z87.891 Personal history of nicotine dependence
CPT/HCPCS: A9270; J0401; J1200; J1630; J2060

== ENCOUNTER 2024-05-22 21:59 | Emergency (ER) | payer OTHER ==
[~2024-05-22] VITALS: Ht 160 cm; Wt 62.3 kg
[2024-05-22 22:12] VITALS: BP 162/120
[2024-05-22 22:33] LABS: BASOPHILS ABSOLUTE AUTO 0.04 K/mm3 (0.00-0.23); BASOPHILS PERCENT AUTO 0 % (0-2); EOSINOPHILS ABSOLUTE AUTO 0.21 K/mm3 (0.00-0.68); EOSINOPHILS PERCENT AUTO 2 % (0-6); Hematocrit 36.5 % (33.0-51.0); Hemoglobin 12.1 g/dL (11.5-16.0); IMMATURE GRAN ABSOLUTE AUTO 0.02 K/mm3 (0.00-0.10); IMMATURE GRAN PERCENT AUTO 0 % (0-1); LYMPHOCYTES ABSOLUTE AUTO 2.62 K/mm3 (0.84-5.20); LYMPHOCYTES PERCENT AUTO 27 % (21-46); MONOCYTES PERCENT AUTO 7 % (4-13); Mean Corpuscular HGB 29.8 pg (26.0-34.0); Mean Corpuscular HGB Conc 33.2 g/dL (31.5-36.5); Mean Corpuscular Volume 90 fL (80-100); Mean Platelet Volume 9.9 fL (9.1-12.4); NEUTROPHILS ABSOLUTE AUTO 6.06 K/mm3 (1.96-9.15); NEUTROPHILS PERCENT AUTO 63 % (41-73); Platelet Count 260 K/mm3 (150-400); RDW Coefficient Variation 13.9 % (11.7-14.2); RDW Standard Deviation 45.8 fL (35.1-46.3); Red Blood Cell Count 4.06 M/mm3 (3.80-5.20); White Blood Cell Count 9.65 K/mm3 (4.00-11.30)
[2024-05-22 22:58] LABS: Albumin, Blood 3.9 g/dL (3.4-5.0); Albumin/Globulin Ratio 1.1 (0.8-1.8); Bilirubin, Total 0.2 mg/dL (0.1-1.0); Bun/Creatinine Ratio 19.3 (12.0-20.0); Calcium, Blood 8.9 mg/dL (8.5-10.1); Creatinine, Blood 0.83 mg/dL (0.40-1.00); Globulin, Blood 3.6 g/dL (2.2-4.0); Potassium, Blood 3.6 mmol/L (3.5-5.5); Total Protein, Blood 7.5 g/dL (6.4-8.2)
[2024-05-22 23:44] LABS: Source, Urine Clean Catch
[2024-05-22 23:47] LABS: Bilirubin, Urine Neg (Neg); Blood, Urine 5+ (Neg); Glucose Qualitative, Urine Neg (Neg); Ketones, Urine Neg (Neg); Leukocyte Esterase, Urine Neg (Neg); Nitrite, Urine Neg (Neg); Protein, Urine 1+ (Neg); Urobilinogen, Urine NORM (Normal)
[2024-05-22 23:52] LABS: Appearance, Urine Hazy (Clear)
[2024-05-22 23:53] LABS: Color, Urine Yellow (P-Yellow)
[2024-05-22 23:54] LABS: Bacteria Few /hpf; Red Blood Cells, Urine TNTC /hpf (0-2); Squamous Epithelial Cells Rare /hpf (Few); White Blood Cells, Urine 0-2 /hpf (0-5)
== END 2024-05-23 00:21 | disposition home or self-care (01) ==
LOC: ER 21:59
PROVIDERS: Emergency Medicine
DX: O03.4 Incomplete spontaneous abortion without complication (principal); Z87.891 Personal history of nicotine dependence; K21.9 Gastro-esophageal reflux disease without esophagitis; Z88.1 Allergy status to other antibiotic agents; Z88.0 Allergy status to penicillin
CPT/HCPCS: 76817; 80053; 81001; 84702; 85025; 99284

== ENCOUNTER 2024-09-21 14:12 | Emergency (ER) | payer OTHER ==
[~2024-09-21] VITALS: Ht 167.6 cm; Wt 63.5 kg
[2024-09-21 16:42] LABS: Source, Urine Clean Catch
[2024-09-21 16:49] LABS: Appearance, Urine Clear (Clear); Bilirubin, Urine Neg (Neg); Blood, Urine 4+ (Neg); Color, Urine Yellow (P-Yellow); Glucose Qualitative, Urine Neg (Neg); Ketones, Urine Neg (Neg); Leukocyte Esterase, Urine 2+ (Neg); Nitrite, Urine Neg (Neg); Protein, Urine Neg (Neg); Urobilinogen, Urine NORM (Normal); pH, Urine 6.5 (5.0-8.0)
[2024-09-21 16:56] LABS: BASOPHILS ABSOLUTE AUTO 0.05 K/mm3 (0.00-0.23); BASOPHILS PERCENT AUTO 0 % (0-2); EOSINOPHILS ABSOLUTE AUTO 0.11 K/mm3 (0.00-0.68); EOSINOPHILS PERCENT AUTO 1 % (0-6); Hematocrit 42.1 % (33.0-51.0); Hemoglobin 13.8 g/dL (11.5-16.0); IMMATURE GRAN ABSOLUTE AUTO 0.04 K/mm3 (0.00-0.10); IMMATURE GRAN PERCENT AUTO 0 % (0-1); LYMPHOCYTES ABSOLUTE AUTO 2.04 K/mm3 (0.84-5.20); LYMPHOCYTES PERCENT AUTO 17 % (21-46); MONOCYTES ABSOLUTE AUTO 0.89 K/mm3 (0.16-1.47); MONOCYTES PERCENT AUTO 7 % (4-13); Mean Corpuscular HGB 27.6 pg (26.0-34.0); Mean Corpuscular HGB Conc 32.8 g/dL (31.5-36.5); Mean Corpuscular Volume 84 fL (80-100); Mean Platelet Volume 9.1 fL (9.1-12.4); NEUTROPHILS ABSOLUTE AUTO 8.96 K/mm3 (1.96-9.15); NEUTROPHILS PERCENT AUTO 74 % (41-73); Platelet Count 340 K/mm3 (150-400); RDW Coefficient Variation 14.9 % (11.7-14.2); White Blood Cell Count 12.09 K/mm3 (4.00-11.30)
[2024-09-21 16:57] LABS: Bacteria Few /hpf; Squamous Epithelial Cells Rare /hpf (Few)
[2024-09-21 17:43] LABS: Albumin, Blood 3.9 g/dL (3.4-5.0); Albumin/Globulin Ratio 0.9 (0.8-1.8); Bilirubin, Total 0.2 mg/dL (0.1-1.0); Bun/Creatinine Ratio 15.5 (12.0-20.0); Calcium, Blood 9.5 mg/dL (8.5-10.1); Creatinine, Blood 0.84 mg/dL (0.40-1.00); Globulin, Blood 4.4 g/dL (2.2-4.0); Potassium, Blood 3.6 mmol/L (3.5-5.5); Total Protein, Blood 8.3 g/dL (6.4-8.2)
[2024-09-21] MEDS ORDERED: Acetaminophen 500 MG Tab PO ONE (19:25)
[2024-09-21 19:30] VITALS: BP 98/70
[2024-09-21] MEDS ORDERED: FOSFOMYCIN TROME3 G2 PO (23:23)
[2024-09-21] MEDS ORDERED: FOSFOMYCIN TROME3 G1 PO (23:56)
== END 2024-09-21 19:37 | disposition home or self-care (01) ==
LOC: ER 14:12
PROVIDERS: Student in an Organized Health Care Education/Training Program
DX: O20.0 Threatened abortion (principal); O23.41 Unspecified infection of urinary tract in pregnancy, first trimester; K21.9 Gastro-esophageal reflux disease without esophagitis; Z3A.01 Less than 8 weeks gestation of pregnancy; Z87.891 Personal history of nicotine dependence; Z79.899 Other long term (current) drug therapy; Z88.0 Allergy status to penicillin; Z88.1 Allergy status to other antibiotic agents; Z88.8 Allergy status to other drugs, medicaments and biological substances
CPT/HCPCS: 76801; 76817; 80053; 81001; 84702; 85025; 86900; 86901; 87086; 87147; 99284-25; A9270

== ENCOUNTER 2024-10-06 13:07 | Observation (INO) | payer OTHER ==
[~2024-10-06] VITALS: Ht 157.5 cm; Wt 56.7 kg
[~2024-10-06 13:07] MED LIST changes: +FOSFOMYCIN TROME3 G1 PO; +FOSFOMYCIN TROME3 G2 PO
[2024-10-06] MEDS ORDERED: LORazepam 2 MG/ML 1ML Injection IV ONE (13:55)
[2024-10-06] MEDS ORDERED: Haloperidol Lactate Inj. 5 MG/ML Injection IM ONE ×2 (13:55→14:30)
[2024-10-06] MEDS ORDERED: DiphenhydrAMINE HCl 50 MG/ML 1ML Vial IV ONE (13:55)
[2024-10-06] MEDS ORDERED: LORazepam 2 MG/ML 1ML Injection IM ONE (14:30)
[2024-10-06 15:42] LABS: BASOPHILS ABSOLUTE AUTO 0.05 K/mm3 (0.00-0.23); BASOPHILS PERCENT AUTO 1 % (0-2); EOSINOPHILS ABSOLUTE AUTO 0.04 K/mm3 (0.00-0.68); EOSINOPHILS PERCENT AUTO 0 % (0-6); Hematocrit 36.6 % (33.0-51.0); Hemoglobin 12.5 g/dL (11.5-16.0); IMMATURE GRAN ABSOLUTE AUTO 0.05 K/mm3 (0.00-0.10); IMMATURE GRAN PERCENT AUTO 1 % (0-1); LYMPHOCYTES PERCENT AUTO 20 % (21-46); MONOCYTES ABSOLUTE AUTO 0.65 K/mm3 (0.16-1.47); MONOCYTES PERCENT AUTO 6 % (4-13); Mean Corpuscular HGB 27.8 pg (26.0-34.0); Mean Corpuscular HGB Conc 34.2 g/dL (31.5-36.5); Mean Corpuscular Volume 81 fL (80-100); Mean Platelet Volume 9.4 fL (9.1-12.4); NEUTROPHILS PERCENT AUTO 73 % (41-73); Platelet Count 263 K/mm3 (150-400); RDW Coefficient Variation 14.6 % (11.7-14.2); RDW Standard Deviation 42.6 fL (35.1-46.3); White Blood Cell Count 10.69 K/mm3 (4.00-11.30)
[2024-10-06 16:08] LABS: Ethanol (Alcohol), Blood, Med <3 mg/dL; Salicylate <1.7 mg/dL (2.8-20.0)
[2024-10-06 16:27] LABS: Acetaminophen, Random <2.0 ug/mL (10.0-30.0); Alanine Aminotransfer (ALT/SGP 19 U/L (12-78); Albumin, Blood 3.6 g/dL (3.4-5.0); Alk Phos 73 U/L (50-136); Anion Gap 12 mmol/L (3-11); Aspartate Aminotrans (AST/SGOT 22 U/L (12-37); Beta HCG, Quantitative, Serum 131781 mIU/mL (0-3); Bilirubin, Total 0.3 mg/dL (0.1-1.0); Blood Urea Nitrogen 9 mg/dL (8-24); Bun/Creatinine Ratio 15.8 (12.0-20.0); CO2, Blood 24 mmol/L (21-32); Calcium, Blood 8.4 mg/dL (8.5-10.1); Chloride, Blood 104 mmol/L (98-108); Creatinine, Blood 0.57 mg/dL (0.40-1.00); Globulin, Blood 3.7 g/dL (2.2-4.0); Glomerular Filtration Rate 124 (60-); Glucose, Blood 97 mg/dL (70-99); Potassium, Blood 3.5 mmol/L (3.5-5.5); Sodium, Blood 136 mmol/L (136-145); Total Protein, Blood 7.3 g/dL (6.4-8.2)
[2024-10-07 08:01] LABS: Source, Urine Clean Catch
[2024-10-07 08:14] LABS: Appearance, Urine Clear (Clear); Bilirubin, Urine Neg (Neg); Blood, Urine Neg (Neg); Color, Urine Yellow (P-Yellow); Glucose Qualitative, Urine Neg (Neg); Ketones, Urine Neg (Neg); Leukocyte Esterase, Urine 1+ (Neg); Nitrite, Urine Neg (Neg); Protein, Urine 1+ (Neg); Urobilinogen, Urine NORM (Normal)
[2024-10-07 08:20] LABS: Bacteria Many /hpf; Mucus Light (0-Heavy); Red Blood Cells, Urine 0-2 /hpf (0-2); Squamous Epithelial Cells Many /hpf (Few)
[2024-10-07 08:26] LABS: U Amphetamine Screen DETECTED; U Methamphetamine Screen DETECTED
[2024-10-07 08:27] LABS: U Barbituate Screen Not Detected; U Benzodiazapine Screen DETECTED; U Buprenorphine Screen Not Detected; U Cannabinoids Screen Not Detected; U Cocaine Screen Not Detected; U Methadone Screen Not Detected; U Opiates Screen Not Detected; U Oxycodone Screen Not Detected; U Phencyclidine Screen Not Detected
[2024-10-07 11:09] VITALS: BP 103/71
[2024-10-07] MEDS ORDERED: ABILIFY MAINTE300 M1 IM (16:38)
--- NOTE | 2024-10-11 16:55 | NUR ---
DR. HIGUERA DID NOT CONSULT PT WITHIN 24 HOURS. THIS RN CALLED SECOND CONSULT TO DR. BOOTH. HE STATES HE WILL BE HERE TOMORROW AM TO CONSULT PT
[2024-10-26] MEDS ORDERED: ACYC400 PO (10:41)
[2024-10-26] MEDS ORDERED: LAMO25 PO (10:42)
[2024-10-26] MEDS ORDERED: MELA3 PO (10:43)
[2024-10-26] MEDS ORDERED: NICO2 PO (10:44)
[2024-10-26] MEDS ORDERED: TRAZ50 PO (10:45)
[2024-10-26] MEDS ORDERED: Trihexyphenidyl2 MG PO (10:47)
== END 2024-10-07 15:34 | disposition home or self-care (01) ==
LOC: ER 13:07 → EOR 13:08 → ER 13:08 → EOR 13:09 → ER 14:06 → EOR 14:06
PROVIDERS: ADMIT Student in an Organized Health Care Education/Training Program
DX: O99.341 Other mental disorders complicating pregnancy, first trimester (principal); F25.9 Schizoaffective disorder, unspecified; K21.9 Gastro-esophageal reflux disease without esophagitis; F19.90 Other psychoactive substance use, unspecified, uncomplicated; O99.611 Diseases of the digestive system complicating pregnancy, first trimester; O26.891 Other specified pregnancy related conditions, first trimester; R45.1 Restlessness and agitation; F29 Unspecified psychosis not due to a substance or known physiological condition; Z88.8 Allergy status to other drugs, medicaments and biological substances; Z88.0 Allergy status to penicillin; Z88.1 Allergy status to other antibiotic agents; Z79.899 Other long term (current) drug therapy; Z98.891 History of uterine scar from previous surgery; Z98.890 Other specified postprocedural states; Z87.891 Personal history of nicotine dependence; Z3A.08 8 weeks gestation of pregnancy
CPT/HCPCS: 76801; 80053; 80320; 81001; 81025; 84702; 85025; 87086; 93005; 93010; 96372-59; 96374; 96375; 99285-25; G0378; G0480; J1200; J1630; J2060

== ENCOUNTER 2024-10-07 14:06 | Inpatient (IN) | payer OTHER ==
[~2024-10-07] VITALS: Wt 64.0 kg
[2024-10-26 08:28] VITALS: BP 98/60
== END 2024-10-26 13:00 | disposition home or self-care (01) | DRG 832 ==
LOC: BHU 14:06
PROVIDERS: ADMIT Psychiatry & Neurology Psychiatry
DX: O99.341 Other mental disorders complicating pregnancy, first trimester (principal); F20.0 Paranoid schizophrenia; O99.321 Drug use complicating pregnancy, first trimester; F15.229 Other stimulant dependence with intoxication, unspecified; K21.9 Gastro-esophageal reflux disease without esophagitis; Z88.0 Allergy status to penicillin; Z88.1 Allergy status to other antibiotic agents; Z88.8 Allergy status to other drugs, medicaments and biological substances; Z98.890 Other specified postprocedural states; Z79.899 Other long term (current) drug therapy; Z87.891 Personal history of nicotine dependence

== ENCOUNTER → 2025-01-10 | Outpatient (CLI) | payer OTHER ==
[~2025-01-10] MED LIST changes: +ABILIFY MAINTE300 M1 IM; +ACYC400 PO; +LAMO25 PO; +MELA3 PO; +NICO2 PO; +TRAZ50 PO; +Trihexyphenidyl2 MG PO
[2025-01-11 13:25] LABS: Candida glabrata-krusei, PCR NOT DETECTED (NOT DETECT)
[2025-01-11 13:48] LABS: Bacterial Vaginosis PCR Positive (NEGATIVE); Candida Group, PCR DETECTED (NOT DETECT)
== END ==
LOC: LAB 19:09 → LAB SHORT 19:09
DX: N89.8 Other specified noninflammatory disorders of vagina (principal); N39.0 Urinary tract infection, site not specified; R31.9 Hematuria, unspecified
CPT/HCPCS: 81515; 87077; 87086; 87186

== ENCOUNTER → 2025-02-25 | Outpatient (CLI) | payer OTHER ==
[2025-02-25 19:34] LABS: U Amphetamine Screen DETECTED; U Barbituate Screen Not Detected; U Benzodiazapine Screen Not Detected; U Buprenorphine Screen Not Detected; U Cannabinoids Screen Not Detected; U Cocaine Screen Not Detected; U Methadone Screen Not Detected; U Methamphetamine Screen DETECTED; U Opiates Screen Not Detected; U Oxycodone Screen Not Detected; U Phencyclidine Screen Not Detected
[2025-03-01 08:15] LABS: AMPHETAMINE,URN,QUANT 686 ng/mL; MDA,URN,QUANT <200 ng/mL; MDEA,URN,QUANT <200 ng/mL; MDMA,URN,QUANT <200 ng/mL; METHAMPHETAMINE,URN,QUANT 2896 ng/mL; PHENTERMINE,URN,QUANT <200 ng/mL
== END ==
LOC: LAB 18:20 → LAB SHORT 18:20
PROVIDERS: Obstetrics & Gynecology
DX: O99.320 Drug use complicating pregnancy, unspecified trimester (principal); F15.10 Other stimulant abuse, uncomplicated; F19.90 Other psychoactive substance use, unspecified, uncomplicated
CPT/HCPCS: 87086; G0480

== ENCOUNTER 2025-05-25 12:26 | Inpatient (IN) | payer OTHER ==
[~2025-05-25] VITALS: Ht 160 cm; Wt 56.3 kg
[2025-05-25] MEDS ORDERED: DiphenhydrAMINE HCl 50 MG/ML 1ML Vial IM ONE (12:50)
[2025-05-25] MEDS ORDERED: Haloperidol Lactate Inj. 5 MG/ML Injection IM ONE (12:55)
[2025-05-25 13:14] LABS: BASOPHILS ABSOLUTE AUTO 0.08 K/mm3 (0.00-0.23); BASOPHILS PERCENT AUTO 1 % (0-2); EOSINOPHILS ABSOLUTE AUTO 0.02 K/mm3 (0.00-0.68); EOSINOPHILS PERCENT AUTO 0 % (0-6); Hematocrit 35.5 % (33.0-51.0); Hemoglobin 11.1 g/dL (11.5-16.0); IMMATURE GRAN ABSOLUTE AUTO 0.06 K/mm3 (0.00-0.10); IMMATURE GRAN PERCENT AUTO 0 % (0-1); LYMPHOCYTES ABSOLUTE AUTO 2.48 K/mm3 (0.84-5.20); LYMPHOCYTES PERCENT AUTO 14 % (21-46); MONOCYTES ABSOLUTE AUTO 1.12 K/mm3 (0.16-1.47); MONOCYTES PERCENT AUTO 6 % (4-13); Mean Corpuscular HGB Conc 31.3 g/dL (31.5-36.5); Mean Corpuscular Volume 84 fL (80-100); NEUTROPHILS ABSOLUTE AUTO 13.65 K/mm3 (1.96-9.15); NEUTROPHILS PERCENT AUTO 79 % (41-73); NRBC ABSOLUTE 0.00 K/mm3 (0.00-0.02); NRBC Auto 0.0 /100 WBC (0.0-0.2); Platelet Count 449 K/mm3 (150-400); RDW Coefficient Variation 14.1 % (11.7-14.2); RDW Standard Deviation 43.1 fL (35.1-46.3)
[2025-05-25 13:30] LABS: Salicylate <1.7 mg/dL (2.8-20.0)
[2025-05-25 13:31] LABS: Ethanol (Alcohol), Blood, Med <3 mg/dL
[2025-05-25 13:41] LABS: Alanine Aminotransfer (ALT/SGP 26 U/L (12-78); Albumin, Blood 4.0 g/dL (3.4-5.0); Albumin/Globulin Ratio 1.1 (0.8-1.8); Anion Gap 17 mmol/L (3-11); Aspartate Aminotrans (AST/SGOT 31 U/L (12-37); Bilirubin, Total 0.7 mg/dL (0.1-1.0); Blood Urea Nitrogen 40 mg/dL (8-24); CO2, Blood 20 mmol/L (21-32); Calcium, Blood 8.7 mg/dL (8.5-10.1); Chloride, Blood 105 mmol/L (98-108); Creatinine, Blood 1.54 mg/dL (0.40-1.00); Globulin, Blood 3.8 g/dL (2.2-4.0); Glucose, Blood 61 mg/dL (70-99); Potassium, Blood 4.2 mmol/L (3.5-5.5); Sodium, Blood 138 mmol/L (136-145); Total Protein, Blood 7.8 g/dL (6.4-8.2)
[2025-05-25 13:42] LABS: Acetaminophen, Random <2.0 ug/mL (10.0-30.0)
[2025-05-25] MEDS ORDERED: NS 1,000 ML IV SCH (15:10)
[2025-05-25] MEDS ORDERED: Ondansetron HCl 2 MG / ML 2ML Vial IV PRN (17:10)
[2025-05-25] MEDS ORDERED: FLU VACC TS2025-26(6MOS UP)/PF 45 MCG/0.5 ML SYRINGE IM SCH (17:10)
[2025-05-25] MEDS ORDERED: Magnesium Hydroxide Conc 10 ML UDC PO PRN (17:10)
[2025-05-25] MEDS ORDERED: DiphenhydrAMINE HCl 50 MG/ML 1ML Vial IV PRN (17:15)
[2025-05-25] MEDS ORDERED: Haloperidol Lactate Inj. 5 MG/ML Injection IM PRN (17:15)
[2025-05-25] MEDS ORDERED: LORazepam 2 MG/ML 1ML Injection IV PRN (17:20)
[2025-05-25 18:42] VITALS: BP 107/62
--- NOTE | 2025-05-25 22:25 | NUR ---
PT AWAKE- PT AWAKE IN ROOM. SHE IS MUMBLING ABOUT HER BOYFRIEND AND INDICATING HER FACE. I COULD NOT UNDERSTAND WHAT SHE IS SAYING. SHE ALSO SAID THAT SHE DOES NOT WANT ANY MENTAL HEALTH MEDICATIONS WITHOUT HER CONSENT. I ENSURED HER THAT I WOULDN'T. SHE IS VERY LETHARGIC BUT WITHOUT RESPIRATORY DISTRESS. SHE STAYED UP TO USE THE RESTROOM AND TO EAT A SNACK AND WAS COOPERATIVE THROUGHOUT.
[2025-05-25 22:31] LABS: Source, Urine Clean Catch
[2025-05-25 22:34] LABS: Bilirubin, Urine Neg (Neg); Glucose Qualitative, Urine Neg (Neg); Ketones, Urine 3+ (Neg); Leukocyte Esterase, Urine 3+ (Neg); Protein, Urine 1+ (Neg); Specific Gravity, Urine 1.020 (1.003-1.022); Urobilinogen, Urine NORM (Normal)
[2025-05-25 22:40] LABS: Color, Urine Yellow (P-Yellow)
[2025-05-25 22:41] LABS: Red Blood Cells, Urine 0-2 /hpf (0-2)
[2025-05-25 22:48] LABS: U Amphetamine Screen DETECTED; U Barbiturate Screen Not Detected; U Benzodiazapine Screen Not Detected; U Buprenorphine Screen Not Detected; U Cannabinoids Screen Not Detected; U Cocaine Screen Not Detected; U Methadone Screen Not Detected; U Methamphetamine Screen DETECTED; U Opiates Screen Not Detected; U Oxycodone Screen Not Detected; U Phencyclidine Screen Not Detected
--- NOTE | 2025-05-26 01:48 | NUR ---
URINE TEST RESULTS- CALL TO HCP TO MAKE HIM AWARE THAT PATIENT HAD A POSITIVE URINE TEST TODAY. PER ER NOTES PT HAD A BABY 05/08/25 SO THIS IS AN UNEXPECTED RESULT. HCP WILL REVIEW HER NOTES AND ORDER NEEDED.
[2025-05-26 02:30] LABS: BASOPHILS ABSOLUTE AUTO 0.05 K/mm3 (0.00-0.23); BASOPHILS PERCENT AUTO 1 % (0-2); EOSINOPHILS ABSOLUTE AUTO 0.23 K/mm3 (0.00-0.68); EOSINOPHILS PERCENT AUTO 3 % (0-6); Hematocrit 31.0 % (33.0-51.0); Hemoglobin 9.9 g/dL (11.5-16.0); IMMATURE GRAN ABSOLUTE AUTO 0.04 K/mm3 (0.00-0.10); IMMATURE GRAN PERCENT AUTO 1 % (0-1); LYMPHOCYTES ABSOLUTE AUTO 2.49 K/mm3 (0.84-5.20); LYMPHOCYTES PERCENT AUTO 31 % (21-46); MONOCYTES ABSOLUTE AUTO 0.60 K/mm3 (0.16-1.47); MONOCYTES PERCENT AUTO 7 % (4-13); Mean Corpuscular HGB Conc 31.9 g/dL (31.5-36.5); Mean Corpuscular Volume 82 fL (80-100); NEUTROPHILS ABSOLUTE AUTO 4.67 K/mm3 (1.96-9.15); NEUTROPHILS PERCENT AUTO 58 % (41-73); NRBC ABSOLUTE 0.00 K/mm3 (0.00-0.02); NRBC Auto 0.0 /100 WBC (0.0-0.2); Platelet Count 365 K/mm3 (150-400); RDW Coefficient Variation 14.4 % (11.7-14.2); RDW Standard Deviation 42.5 fL (35.1-46.3)
[2025-05-26 03:12] LABS: Alanine Aminotransfer (ALT/SGP 22.0 U/L (12-78); Albumin, Blood 2.9 g/dL (3.4-5.0); Albumin/Globulin Ratio 0.9 (0.8-1.8); Anion Gap 10.0 mmol/L (3-11); Aspartate Aminotrans (AST/SGOT 36.0 U/L (12-37); Bilirubin, Total 0.6 mg/dL (0.1-1.0); Blood Urea Nitrogen 22.0 mg/dL (8-24); CO2, Blood 22.0 mmol/L (21-32); Calcium, Blood 7.7 mg/dL (8.5-10.1); Chloride, Blood 110.0 mmol/L (98-108); Creatinine, Blood 0.91 mg/dL (0.40-1.00); Ferritin, Serum 20.0 ng/mL (8-252); Globulin, Blood 3.2 g/dL (2.2-4.0); Glucose, Blood 76.0 mg/dL (70-99); Potassium, Blood 3.5 mmol/L (3.5-5.5); Sodium, Blood 138.0 mmol/L (136-145); Total Iron Binding Capacity 358.0 ug/dL (250-450); Total Protein, Blood 6.1 g/dL (6.4-8.2)
[2025-05-26 03:48] VITALS: BP 109/73
--- NOTE | 2025-05-26 06:23 | NUR ---
SHIFT SUMMARY- TEST AND UPCOMING MEDICATIONS- SERUM TEST IS POSITIVE. CALL TO HCP WHO ADVISES THAT THE ABILIFY AND LOVENOX ARE OK TO ADMINISTER BUT PATIENTS HCP SHOULD BE NOTIFIED OF RESULTS. I WILL PUT IN A NURSE NOTIFY. PATIENT WILL NEED A MORE IN DEPTH ASSESSMENT ONCE SHE IS AWAKE ENOUGH TO VERBALIZE HER HEALTH HISTORY.
[2025-05-26 07:34] VITALS: BP 120/73
[2025-05-26] MEDS ORDERED: Enoxaparin 40 MG/0.4 ML SYR SC SCH (09:00)
[2025-05-26] MEDS ORDERED: Prenatal Vit/FE Fumarate/FA 1 Tab PO SCH (14:00)
--- NOTE | 2025-05-26 15:17 | NUR ---
DR WHELAN AT BEDSIDE AT THIS TIME FOR SI ASSESSMENT. PT DENIES SI AT THIS TIME.
[2025-05-26 17:26] VITALS: BP 115/72
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
--- NOTE | 2025-05-26 22:24 | NUR ---
2000 SI ASSESSMENT- PATIENT IS RESTING CALMLY IN HER ROOM. DENIES SI IDEATIONS.
[2025-05-26 22:47] VITALS: BP 114/74
[2025-05-27 03:55] VITALS: BP 119/81
--- NOTE | 2025-05-27 04:40 | NUR ---
SHIFT SUMMARY- NO SHIFT EVENTS. PATIENT RESTED COMFORTABLY THROUGHOUT THE SHIFT. PENDING HCG RESULT. ONCE THAT IS INTERPRETED NORMAL PATIENT WILL BE MEDICALLY CLEARED. PT IS ON A HOLD AT THIS TIME PENDING PSYCH RELEASE. MEDICATIONS- WHOLE WITH WATER AMBULATION- SBA URINATION/DEFICATION- CONTINENT X2
[2025-05-27 06:54] LABS: BASOPHILS ABSOLUTE AUTO 0.04 K/mm3 (0.00-0.23); BASOPHILS PERCENT AUTO 1 % (0-2); EOSINOPHILS ABSOLUTE AUTO 0.27 K/mm3 (0.00-0.68); EOSINOPHILS PERCENT AUTO 5 % (0-6); Hematocrit 31.8 % (33.0-51.0); Hemoglobin 9.7 g/dL (11.5-16.0); IMMATURE GRAN ABSOLUTE AUTO 0.03 K/mm3 (0.00-0.10); IMMATURE GRAN PERCENT AUTO 1 % (0-1); LYMPHOCYTES ABSOLUTE AUTO 1.70 K/mm3 (0.84-5.20); LYMPHOCYTES PERCENT AUTO 29 % (21-46); MONOCYTES ABSOLUTE AUTO 0.46 K/mm3 (0.16-1.47); MONOCYTES PERCENT AUTO 8 % (4-13); Mean Corpuscular HGB Conc 30.5 g/dL (31.5-36.5); Mean Corpuscular Volume 85 fL (80-100); NEUTROPHILS ABSOLUTE AUTO 3.39 K/mm3 (1.96-9.15); NEUTROPHILS PERCENT AUTO 58 % (41-73); NRBC ABSOLUTE 0.00 K/mm3 (0.00-0.02); NRBC Auto 0.0 /100 WBC (0.0-0.2); Platelet Count 324 K/mm3 (150-400); RDW Coefficient Variation 14.5 % (11.7-14.2); RDW Standard Deviation 44.1 fL (35.1-46.3)
[2025-05-27 07:13] LABS: Anion Gap 7.0 mmol/L (3-11); Beta HCG, Quantitative, Serum 4.0 mIU/mL (0-3); Blood Urea Nitrogen 13.0 mg/dL (8-24); CO2, Blood 23.0 mmol/L (21-32); Calcium, Blood 7.8 mg/dL (8.5-10.1); Chloride, Blood 113.0 mmol/L (98-108); Creatinine, Blood 0.76 mg/dL (0.40-1.00); Glucose, Blood 88.0 mg/dL (70-99); Potassium, Blood 3.9 mmol/L (3.5-5.5); Sodium, Blood 139.0 mmol/L (136-145)
[2025-05-27 07:28] VITALS: BP 121/80
[2025-05-27] MEDS ORDERED: ABILIFY MYCITE10 M2 PO (15:55)
--- NOTE | 2025-05-27 16:20 | NUR ---
PT DISCHARGED WITH DC INSTRUCTIONS AT [address] CHAVEZ CLEARED HOSP HOLD AND SI. PT'S SIGN OTHER HERE TO PICK HER UP AND DRIVE HER HOME. PT AGREES TO FOLLOW UP WITH [facility]. 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 SENT HOME WITH ALL BELONGINGS FROM [facility] UNIT SAFE. ALSO GIVEN A CARD FOR FOOD PANTRY NUHA, TO FOLLOWUP WITH TOMORROW SHE HAS GONE HOME FOR THE DAY. DECLINED WHEELCHAIR. AMBULATED OUTSIDE WITH BOYFRIEND ASSIST OUT TO CAR.
== END 2025-05-27 16:10 | disposition home or self-care (01) | DRG 776 ==
LOC: ER 12:26 → MEDS 12:28
PROVIDERS: Emergency Medicine; ADMIT Internal Medicine
DX: O99.893 Other specified diseases and conditions complicating puerperium (principal); O99.13 Other diseases of the blood and blood-forming organs and certain disorders involving the immune mechanism complicating the puerperium; N17.9 Acute kidney failure, unspecified; Z59.00 Homelessness unspecified; F20.0 Paranoid schizophrenia; O99.325 Drug use complicating the puerperium; O99.345 Other mental disorders complicating the puerperium; D72.829 Elevated white blood cell count, unspecified; O90.81 Anemia of the puerperium; E16.2 Hypoglycemia, unspecified; O99.285 Endocrine, nutritional and metabolic diseases complicating the puerperium; F10.10 Alcohol abuse, uncomplicated; F15.10 Other stimulant abuse, uncomplicated; F31.9 Bipolar disorder, unspecified; F41.9 Anxiety disorder, unspecified; G47.00 Insomnia, unspecified; E86.0 Dehydration; F17.200 Nicotine dependence, unspecified, uncomplicated; D75.839 Thrombocytosis, unspecified; Z88.0 Allergy status to penicillin; Z88.1 Allergy status to other antibiotic agents; Z88.8 Allergy status to other drugs, medicaments and biological substances
CPT/HCPCS: 36415; 76856; 80048; 80053; 80320; 81001; 81025; 82607; 82728; 82746; 82947; 83036; 83540; 83550; 83605; 84702; 85025; 87086; 99285; A9270; G0378; G0480; J1200; J1630; J1790; J7030; J7120

== ENCOUNTER 2025-06-01 23:08 | Observation (INO) | payer OTHER ==
[~2025-06-01] VITALS: Ht 167.6 cm; Wt 68.0 kg
[2025-06-01] MEDS ORDERED: Ziprasidone Mesylate 20 MG / Vial IM ONE (23:20)
[2025-06-01] MEDS ORDERED: LORazepam 2 MG/ML 1ML Injection IM ONE ×2 (23:20→23:55)
[2025-06-01] MEDS ORDERED: Haloperidol Lactate Inj. 5 MG/ML Injection IM ONE (23:55)
[2025-06-02 01:53] LABS: BASOPHILS ABSOLUTE AUTO 0.03 K/mm3 (0.00-0.23); BASOPHILS PERCENT AUTO 0 % (0-2); EOSINOPHILS ABSOLUTE AUTO 0.04 K/mm3 (0.00-0.68); EOSINOPHILS PERCENT AUTO 0 % (0-6); Hematocrit 34.7 % (33.0-51.0); Hemoglobin 10.9 g/dL (11.5-16.0); IMMATURE GRAN ABSOLUTE AUTO 0.06 K/mm3 (0.00-0.10); IMMATURE GRAN PERCENT AUTO 1 % (0-1); LYMPHOCYTES ABSOLUTE AUTO 1.68 K/mm3 (0.84-5.20); LYMPHOCYTES PERCENT AUTO 17 % (21-46); MONOCYTES ABSOLUTE AUTO 0.84 K/mm3 (0.16-1.47); MONOCYTES PERCENT AUTO 9 % (4-13); Mean Corpuscular HGB Conc 31.4 g/dL (31.5-36.5); Mean Corpuscular Volume 84 fL (80-100); NEUTROPHILS ABSOLUTE AUTO 7.20 K/mm3 (1.96-9.15); NEUTROPHILS PERCENT AUTO 73 % (41-73); NRBC ABSOLUTE 0.00 K/mm3 (0.00-0.02); NRBC Auto 0.0 /100 WBC (0.0-0.2); Platelet Count 308 K/mm3 (150-400); RDW Coefficient Variation 15.4 % (11.7-14.2); RDW Standard Deviation 46.3 fL (35.1-46.3)
[2025-06-02 02:41] LABS: Ethanol (Alcohol), Blood, Med <3 mg/dL; Salicylate <1.7 mg/dL (2.8-20.0)
[2025-06-02 02:43] LABS: Acetaminophen, Random <2.0 ug/mL (10.0-30.0); Alanine Aminotransfer (ALT/SGP 42 U/L (12-78); Albumin, Blood 3.5 g/dL (3.4-5.0); Albumin/Globulin Ratio 1.0 (0.8-1.8); Anion Gap 8 mmol/L (3-11); Aspartate Aminotrans (AST/SGOT 57 U/L (12-37); Bilirubin, Total 0.5 mg/dL (0.1-1.0); Blood Urea Nitrogen 16 mg/dL (8-24); CO2, Blood 27 mmol/L (21-32); Calcium, Blood 8.7 mg/dL (8.5-10.1); Chloride, Blood 109 mmol/L (98-108); Creatinine, Blood 0.94 mg/dL (0.40-1.00); Globulin, Blood 3.5 g/dL (2.2-4.0); Glucose, Blood 83 mg/dL (70-99); Potassium, Blood 3.7 mmol/L (3.5-5.5); Sodium, Blood 140 mmol/L (136-145); Total Protein, Blood 7.0 g/dL (6.4-8.2)
[2025-06-03 08:30] LABS: Source, Urine Clean Catch
[2025-06-03 08:41] LABS: Bilirubin, Urine Neg (Neg); Color, Urine Yellow (P-Yellow); Glucose Qualitative, Urine Neg (Neg); Ketones, Urine Neg (Neg); Leukocyte Esterase, Urine 3+ (Neg); Protein, Urine 1+ (Neg); Specific Gravity, Urine 1.010 (1.003-1.022); Urobilinogen, Urine NORM (Normal)
[2025-06-03 08:54] LABS: White Blood Cells, Urine 25-50 /hpf (0-5)
[2025-06-03 08:59] LABS: U Amphetamine Screen Not Detected; U Barbiturate Screen Not Detected; U Benzodiazapine Screen DETECTED; U Buprenorphine Screen Not Detected; U Cannabinoids Screen Not Detected; U Cocaine Screen Not Detected; U Methadone Screen Not Detected; U Methamphetamine Screen Not Detected; U Opiates Screen Not Detected; U Oxycodone Screen Not Detected; U Phencyclidine Screen Not Detected
[2025-06-03 09:10] VITALS: BP 119/93
== END 2025-06-03 12:15 | disposition other institution (70) ==
LOC: ER 23:08 → EOR 23:09
PROVIDERS: ADMIT Student in an Organized Health Care Education/Training Program
DX: F23 Brief psychotic disorder (principal); F25.9 Schizoaffective disorder, unspecified; F15.90 Other stimulant use, unspecified, uncomplicated; K21.9 Gastro-esophageal reflux disease without esophagitis; Z79.899 Other long term (current) drug therapy; Z88.0 Allergy status to penicillin; Z88.1 Allergy status to other antibiotic agents; Z88.8 Allergy status to other drugs, medicaments and biological substances; Z87.828 Personal history of other (healed) physical injury and trauma; Z87.891 Personal history of nicotine dependence
CPT/HCPCS: 80053; 80320; 81001; 84703; 85025; 87086; 96372; 99285-25; A9270; G0378; G0480; J1630; J2060; J3486

== ENCOUNTER 2025-06-03 10:53 | Inpatient (IN) | payer OTHER ==
[~2025-06-03] VITALS: Ht 160 cm; Wt 57.3 kg
[2025-06-03] MEDS ORDERED: Aluminum Hydroxide 320MG/5ML 473 ML PO PRN (12:35)
[2025-06-03] MEDS ORDERED: Ondansetron 4 MG SoluTab MM PRN (12:35)
[2025-06-03] MEDS ORDERED: LORazepam 2 MG/ML 1ML Injection IM PRN (12:35)
[2025-06-03] MEDS ORDERED: Polyethylene Glycol 3350 17 gm PO PRN (12:40)
[2025-06-03] MEDS ORDERED: DiphenhydrAMINE HCl 50 MG/ML 1ML Vial IM PRN (12:40)
[2025-06-03] MEDS ORDERED: Haloperidol Lactate Inj. 5 MG/ML Injection IM PRN (12:40)
[2025-06-03] MEDS ORDERED: FLU VACC TS2025-26(6MOS UP)/PF 45 MCG/0.5 ML SYRINGE IM SCH (12:40)
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
[2025-06-03 20:23] VITALS: BP 134/91
--- NOTE | 2025-06-04 04:34 | NUR ---
SHIFT SUMMARY: PT A/O X3. PT IS HALLUCINATING AND HAS DELUSIONS. TANGENTIAL SPEECH. PT WENT TO BED AROUND 2200 AND SLEPT UNTIL 0000. HAS BEEN AWAKE SINCE MIDNIGHT. PACES THE HALLS AND SPEAKING FROM ONE SUBJECT TO THE NEXT. PT ALSO FREQUENTLY SPEAKS OF HER BABY. CPS HAS CUSTODY OF THE BABY. AT 0108 PT ASKED FOR TUMS AND WAS GIVEN IT FOR AN ACID STOMACH PER PT. IT WAS EFFECTIVE PT HASN'T MENTIONED ANYTHING ABOUT IT. AT 0315 PT WAS IN THE SHOWER. AFTER SHOWER CONTINUEW TO PACE THE FLOOR AND ASKS FOR LITTLE DEMANDS. 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 WILL CONTINUE TO MONITOR Q 15 MINS FOR SAFETY AND WELLNESS. IS REDIRECTABLE BUT IT DOESN'T LAST LONG. 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
[2025-06-04 07:25] VITALS: BP 132/92
[2025-06-04] MEDS ORDERED: Multivitamins 1 Tab PO SCH (09:00)
[2025-06-04] MEDS ORDERED: ARIPiprazole 300 MG SUSER.SYR IM SCH (16:00)
--- NOTE | 2025-06-04 17:48 | NUR ---
SHIFT SUMMARY PT DENIES SI, HI, AVTH. T/O DAY PT HAS BEEN PACING AND HAS FLIGHT OF IDEAS WHEN SPEAKING. WAS ABLE TO ANSWER SI, HI, AVTH QUESTIONS APPROPRIATELY, BUT REQUIRES REDIRECTING. REFUSED MEDS FOR THIS RN THIS AM, BUT TOOK IM ABILIFY PER RENITA AND B52 FROM [facility]. PT DID NOT ATTEND GROUPS. VISIT FROM , NO OTHER ACUTE EVENTS TODAY.
--- NOTE | 2025-06-04 20:30 | NUR ---
ASSESSMENT AT 1830 PATIENT UP AT NURSES DESK WITH LINEN FOR SHOWER, ASKING TO USE PAULA SHOWER. HOLDING GOOD EYE CONTACT, DIFFICULT TO FOLLOW CONVERSATION DUE TO TANGENTIAL CONVERSATION. WHEN SHIFT REPORT DONE, PATIENT WAS IN HER BED SLEEPING RESP EVEN AND UNLABORED, DUE TO NO SLEEP LAST NIGHT AND PATIENT BEING RESTLESS ALL DAY OPT TO ALLOW PATIENT TO SLEEP AT THIS TIME.
--- NOTE | 2025-06-05 04:54 | NUR ---
SHIFT SUMMARY PATIENT UP PACING IN MILIEU ASKING TO USE PAULA SHOWER. HOLDING GOOD EYE CONTACT DIFFICULT TO FOLLOW CONVERSATION DUE TO TANGENTIAL CONVERSATION. DURING SHIFT REPORT PATIENT GOING TO BED, AND FALLING TO SLEEP RESP EVEN AND UNLABORED. DUE TO NO SLEEP LAST NIGHT AND PATIENT BEING RESTLESS T/O DAY PATIENT ALLOWED TO SLEEP. SLEEPING WELL T/O NIGHT RESP EVEN AND UNLABORED, REPOSITIONING SELF IN BED. CONTINUE TO MONITOR Q15MIN.
--- NOTE | 2025-06-05 05:30 | NUR ---
PATIENT AWAKE, PACING IN PAULA WITH MULTIPLE THINGS IN HER ARMS. WHEN GREETED WITH GOOD MORNING. PATIENT VERBALIZED "I'M NOT GOING WITH YOU" AND WALKING QUICKLY AWAY. WHEN SHE RETURNED TO NURSES DESK ATTEMPT TO ASK HER ORIENTATION QUESTIONS AND PATIENT VERBALIZED "DON'T DO THIS" AND AGAIN WALKED QUICKLY AWAY AND STARTED CHECKING ALL CLOSED DOORS TO SEE IF THEY WERE OPEN. CONVERSATION CONTINUES TO BE TANGENTIAL AND VERY DIFFICULT TO FOLLOW, DUE TO FLIGHT OF IDEAS. PATIENT NEEDING FREQUENT REDIRECTION TO KEEP OUT OF OTHER PATIENT ROOMS.
[2025-06-05 07:41] VITALS: BP 118/85
--- NOTE | 2025-06-05 13:39 | NUR ---
SHIFT ASSESSMENT: PT WAS WALKING IN THE HALLS TALKING, DENIED SI AND HI. SHE DESCRIBED HER MOOD , "CAGED." THEN REFUSED TO ANSWER OTHER QUESTIONS. SHE HAS BEEN GETTING IRITATED WITH A PEER. SHE HAS NOT BEEN ABLE TO BE IN GROUP TODAY NOR HAS SHE BEEN ABLE TO BE ACTIVE IN THE PT MILIEU. WHEN ASKED IF SHE WAS FEELING ANXIOUS, SHE REPLIED, "YA." BUT DID'T REPLY FURTHER.
--- NOTE | 2025-06-05 18:28 | NUR ---
PT HAS CONTINUED TO PACE THE HALLS WITH TANGENTIAL SPEECH. SHE WILL MAKE A NONSENSICAL STATEMENT AND THEN BE RUDE WHEN ASKED WHAT SHE SAID.
[2025-06-05 20:33] VITALS: BP 127/86
--- NOTE | 2025-06-06 04:28 | NUR ---
SHIFT SUMMARY PATIENT UP PACING IN PAULA, CONSTANTLY TALKING, CONVERSATION TANGENTAL, IRRITABLE WHEN ASKED QUESTIONS OR ATTEMPT TO REDIRECT. REFUSING TO TAKE ANY MEDICATIONS FOR ANXIETY OR SLEEP. SLEEPING ONLY 4HR T/O NIGHT IN BROKEN SLEEP. DENIES SI,HI, OR AVTH YET APPEARS TO BE RESPONDING TO INTERNAL STIMULI. CONTINUE TO MONITOR Q15MIN
--- NOTE | 2025-06-06 08:01 | NUR ---
PRN MEDICATION: @ 0737 PT GIVEN ATIVAN 2MG PO, BENADRYL 50MG PO, HALDOL 5MG FOR A MASS OF 9. AM MEDS GIVEN WELL. PT PACING IN THE HALLWAY CONSTANTLY TALKING, WITH TANGENTIAL SPEAKING. 0806 PT CONTINUES TO PACE AND TALK. APPEARS TO BE RESPONDING TO INTERNAL STIMULI.
[2025-06-06] MEDS ORDERED: LORazepam 2 MG/ML 1ML Injection IM PRN (08:55)
[2025-06-06] MEDS ORDERED: Ziprasidone Mesylate 20 MG / Vial IM PRN (09:45)
--- NOTE | 2025-06-06 11:28 | NUR ---
PT ATE BREAKFAST AND WENT TO REST ON HER BED, SHE HAS APPEARED TO SLEEP SINCE.
--- NOTE | 2025-06-06 14:20 | NUR ---
SHIFT ASSESSMENT: PT HAS NOT BEEN ABLE TO VERBALIZED HER FEELINGS OF HER MENTAL HEALTH. SEEN ABOVE SHE WAS GIVEN ATIVAN 2MG, BENADRYL 50MG, AND HALDOL 5MG PO FOR A MASS OF 9. PT WAS PACING THE HALLWAYS WITH TANGENTIAL COMMUNICATION, AND WAS APPEARING TO BE VERY AGITATED. SHE CALMED AND SLEPT FOR A LITTLE WHILE AND THEN RETURNED TO AN AGITATED STATE. SHE WAS GIVEN GEODON 20MG AT 11:53. SHE RETURNED TO BED AND HAS APPEARED TO BE ASLEEP.
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
--- NOTE | 2025-06-07 04:15 | NUR ---
SHIFT SUMMARY: PATIENT IS A 35 YEAR OLD FEMALE ADMITTED TO THE [facility] ON 06/03/25 INVOLUNTARILY WITH "BRIEF PSYCHOSIS". SHE CAME OUT TO GREET STAFF AND MADE TANGENTIAL STATEMENTS. SHE PRESENTED PLEASANT WITH A TOUCH OF GROUCHINESS AROUND THE EDGES, WHICH MATCHED HER STATED MOOD. "I GET UPSET WHEN PEOPLE DON'T UNDERSTAND ME". SHE DENIED SUICIDAL IDEATION, THOUGHTS OF SELF HARMING AND A/V/T HALLUCINATIONS. SHE DID NOT APPEAR TO BE RESPONDING TO INTERNAL STIMULI, BUT WOULD COME UP TO THE NURSING STATION THROUGHOUT THE NIGHT AND MAKE NONSENSICAL STATEMENTS. SHE WAS KIND TO A PEER WHO WAS CRYING AND WAS ABLE TO FOCUS ON PEER'S WELL BEING BRIEFLY. SHE MENTIONED FRAGMENTS OF STATEMENTS ABOUT BABIES, "TEN FINGERS AND TOES", "I NEED TO GET THAT CERTIFICATE BEFORE THEY HIDE IT". SHE DID NOT MENTION THAT SHE RECENTLY GAVE (A MONTH AGO). SHE PACED THE HALLWAYS MOST OF THE SHIFT, STOPPING TO CHAT WITH STAFF, AND FOLLOWED ROUNDS PERSON IN THE HALLWAY, IN A FRIENDLY MANNER. SHE WAS A BIT LOUD AND DID SEEM TO BOTHER OTHERS WHO WERE SLEEPING, BUT TOOK REDIRECTION FAIRLY WELL AND SEEMED TO TRY TO STAY IN THE NURSING STATION AREA MOST OF THE TIME. SHE DID GO LIE IN BED AT TIMES AND RESTED QUIETLY WITH EYES CLOSED, BUT NEVER FOR LONG. SHE ATTENDED SNACK AND WRAP UP GROUP, AND HAD NO EVENING MEDICATIONS, NOR DID SHE WANT ANY PRNS. CONTINUING TO MONITOR FOR SAFETY WITH Q15 MINUTE CHECKS.
[2025-06-07] MEDS ORDERED: ARIPiprazole 300 MG SUSER.SYR IM SCH (16:00)
--- NOTE | 2025-06-07 17:03 | NUR ---
SHIFT SUMMARY TODAY, PT PRESENTS WITH GOOD HYGIENE, SHE IS ALERT AND ORIENTED WITH GOOD EYE CONTACT, CLEAR SPEECH WITH NORMAL TONE. SHE CONTINUES TO BE CALM AND COOPERATIVE, COMPLIANT WITH MEDICATION. PT HAS BEEN VERY ENGAGED WITH HER PEERS TODAY AND MILIEU INVOLVEMENT. APPROX 1100 PT APPROACHED RN STATION ASKING FOR VISTARIL, STATED 6/10 ANXIETY "I'M SPINNING IN THE HEAD", MASS SCORE OF 3. AT 1600 SHE REQUESTED SOMETHING MORE FOR HER "SPINNING HEAD". ZYPREXA GIVEN, MASS SCORE 4. SHE HAS DENIED SI/HI. THIS SPINNING HEAD SHE DECRIBES IS NOT VOICES. IT'S A BUZZING, SPINNING FEELING AND IS NEW TO THIS RN SINCE YESTERDAY'S SHIFT. SHE IS ACTIVELY PARTICIPATING IN MEALS/GROUPS. PT HAS CONTINUED TO RECEIVE Q15 MINUTE VISUAL SAFETY CHECKS THROUGHOUT THIS SHIFT.
--- NOTE | 2025-06-07 17:46 | NUR ---
SHIFT SUMMARY PT AxOx2, (SELF AND PERSON) WITH DELUSIONAL THINKING AND TANGENTIAL SPEECH. SHE IS EASILY REDIRECTABLE, BUT FREQUENTLY COMES UP TO STAFF AND NURSES STATION TO DISCUSS RANDOM TOPICS OR REQUESTS. PT IS NOT ABLE TO MAINTAIN A LINEAR CONVERSATION. THIS AM, SHE PRESENTED QUITE MANIC AND RESTLESS, PACING WITH URGENCY AND STOPPING EVERY PERSON SHE WALKED BY TO SAY SOMETHING TO THEM. PT GIVEN PRNS FOR AGITATION BASED ON MASS SCORE WITH SOME NOTABLE BEHAVIORAL IMPROVEMENTS. SHE ALSO TOOK SHORT NAPS THIS AFTERNOON. SHE DENIED SI/HI AND AVTH AND HAS TAKEN HER MEDS WILLINGLY TODAY. PT HAD VISIT WITH HER BOYFRIEND THIS SHIFT. SHE IS CURRENTLY SITTING IN DINING ROOM EATING DINNER. DENIES ANY NEEDS. NO DC PLANS AT THIS TIME.
[2025-06-07 20:40] VITALS: BP 127/85
--- NOTE | 2025-06-08 04:50 | NUR ---
SHIFT SUMMARY 35 YEAR-OLD FEMALE PRESENTS WELL GROOMED. SHE IS ALERT AND ORIENTED. SHE SPEAKS IN A CLEAR VOICE. OCCASIONALLY SHE HAD TO BE REMINDED ABOUT HER VOLUME DURING THE NIGHT TO KEEP FROM WAKING HER PEERS. SHE IS ABLE TO MAKE AND KEEP EYE CONTACT DURING CONVERSATIONS. AT THE TIME OF HER ASSESSMENT, SHE DESCRIBED HER MOOD "CAREGIVER". SHE ALSO DENIED SI, HI, AND AVTH AT THAT TIME, ALTHOUGH SHE WAS NOTED TO BE TALKING TO HERSELF WHILE SHE WAS PACING THE HALLWAY. SHE ATTENDED SNACK AND PACED THE HALLS STOPPING AND TALKING BRIEFLY WITH STAFF AND PEERS IN THE HALLWAY. AT APPROXIMATELY 0100, SHE WAS NOTED TO HAVE FALLEN ASLEEP IN THE SENSORY ROOM WHILE TALKING WITH SUSIE MIMS. SHE REMAINED ASLEEP UNTIL APPROXIMATELY 0250. SHE THEN RESUMED PACING AND HAD TO BE REMINDED OF APPROPRIATE VOLUME WHEN OTHERS ARE STILL SLEEPING. SHE CONTINUES TO BE TANGENTIAL WITH FLIGHTS OF IDEAS. SHE RECEIVED THE FOLLOWING PRN MEDICATIONS: ZOFRAN 4MG FOR NAUSEA. SHE CONTINUES TO BE MONITORED EVERY 15 MINUTES FOR WELLNESS AND SAFETY.
[2025-06-08 08:01] VITALS: BP 121/93
--- NOTE | 2025-06-08 17:42 | NUR ---
SHIFT SUMMARY PT DENIES SI, HI, AVTH. PT PACING AND RAMPING UP THIS AM AND GIVEN B52 PER MASS AND EMAR. PT TOOK A NAP/RESTED QUIETLY AND IS NOW IN DINING ROOM. SPEECH CONTINUES TO BE A FLIGHT OF IDEAS. PT REFUSED ABILIFY INJECTION TODAY. NO OTHER ACUTE EVENTS.
--- NOTE | 2025-06-09 06:19 | NUR ---
SHIFT SUMMARY Pt is A&O, calm, cooperative, appropriately dressed, eye contact is intense at times. Pt stated that her mood was "happy," affect is blunted. Pt denies SI, HI, hallucinations, and current pain. Pt s thoughts are very disorganized and obsessive, expressing flight of ideas. She appears to be somewhat memory impaired forgetting that she was in a hospital later in the evening. Pt has no scheduled HS meds, but staff was able to convince her to take PRN ziprasidone, trazodone, and hydroxyzine for MASS-6, which she received at 2022. Pt spent most of the evening pacing around the nurse station, asking odd and inappropriate questions. Staff continues to monitor q15m for safety and wellness.
[2025-06-09 07:44] VITALS: BP 113/85
--- NOTE | 2025-06-09 08:55 | NUR ---
At the start of the shift, this patient was disorganized but calm. She took morning meds around 0830 and then behavior became pressured. Patient fast pacing in circles around the dining room, carrying her food tray and talking loudly with a fast pace. Patient also becoming intrusive, entering other peers room and carrying her food tray out into the hallway. Patient is s till redirectable but the direction needs to be repeated multliple times.
--- NOTE | 2025-06-09 16:38 | NUR ---
PATIENT IS ALERT AND ORIENTATED TO HERSELF AND WHERE SHE IS. PATIENT HAS A DISHEVELED APPEARANCE. HER THOUGHT CONTENT APPEARS DELUSIONAL AND PROCESS DISORGANIZED. THIS AM, IT APPEARED THAT THE PATEINT BECAME MORE PRESSURED AND FASTER PACED (TALKING AND WALKING) AFTER TAKING MORNING MEDICATIONS. tHIS CONTINUED THE PATIENT BECAME INTRUSIVE BETWEEN PEERS AND STAFF. SHE WAS OFFERED AND ACCEPTED AN ORAL B52 AT 1155. SINCE THAT TIME, THE PATIENTS BEHAVIOR HAS CALMED AND SHE APPEARS TO BE MORE SETTLED. SHE WAS ABLE TO SIT AND EAT LUNCH. SHE HAS BEEN MORE QUIET WITH HER VOICE AND POLITE WITH HER ACTIONS, STILL SEEKING OUT STAFF INTERACTION BUT NOT INTRUSIVELY. tHE PATIENT STILL DECLINES THE SECOND ABILITY INJECTION. AT THIS THIS TIME THE PATIENT IS PACING THE HALLWAY, STOPPING AT THE NURSING STATION AND STOPPING IN THE GROUP ROOM TO SEE WHAT OTHERS ARE DOING. SHE HAD NO THOUGHTS OF SI/HI AND DENIES ALL HALLUCINATIONS.
[2025-06-09 19:31] VITALS: BP 122/78
--- NOTE | 2025-06-10 04:24 | NUR ---
SHIFT SUMMARY PATIENT UP PACING IN PAULA, TALKING TO STAFF AND PEERS, CONVERSATION DIFFICULT TO FOLLOW, SPEECH TANGENTIAL AND AT TIMES DELUSIONAL THINKING THAT SHE WORKS HERE. VERBALIZING SEVERAL TIMES THAT SHE IS MISSING HER BABY. DURING SNACK EATING WHILE PACING IN THE DINNING ROOM, WITH A LOT OF ENCOURAGEMENT PATIENT TAKING SCHEDULED HS MEDICATIONS, REFUSING MELATONIN FOR SLEEP. DENIES SI, HI, OR AVTH. YET APPEARS TO BE RESPONDING TO INTERNAL STIMULI. AFTER ENCOURAGEMENT FROM MULTIPLE STAFF MEMBERS PATIENT TAKING SHOWER. APPEARS TO BE SLEEPING FROM 2230 - 0120 WHEN PATIENT AWAKE AND PACING IN PAULA WITH HEADPHONES. AT 0200 HYDROXYZINE GIVEN FOR MASS 6, THEN AT 0320 APPEARS MORE RESTLESS AND CONTINUES TO BE PACING AND TALKING, PO BENADRYL/ATIVAN/HALDOL GIVEN FOR MASS 8. AT 0345 APPEARS TO BE SLEEPING RESP EVEN AND UNLABORED. CONTINUE TO MONITOR Q15MIN PRN MEDICATIONS GIVEN THIS SHIFT: HYDROXYZINE, BENADRYL/ATIVAN/HALDOL (PO)
[2025-06-10 09:12] VITALS: BP 121/84
--- NOTE | 2025-06-10 11:01 | NUR ---
HOSPITALIST DR. LOMBARDO NOTIFIED BY PHONE OF CONSULT FOR PT EXTENDED ABDOMEN.
--- NOTE | 2025-06-10 11:08 | NUR ---
ABILIFY 300MG IM GIVEN IN PT R. DELTOID. PT TOLERATED WELL. VOLUNTARY ADMISSION PAPERWORK SIGNED ND IN PT CHART
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
[2025-06-10 20:28] VITALS: BP 121/86
--- NOTE | 2025-06-11 03:49 | NUR ---
[facility] SUMMARY 35 YEAR-OLD FEMALE PRESENTS WELL GROOMED. SHE IS ALERT AND ORIENTED. SHE SPEAKS IN A CLEAR VOICE AND IN AN APPROPRIATE VOLUME. SHE IS ABLE TO MAKE AND KEEP EYE CONTACT DURING CONVERSATIONS. AT THE TIME OF HER ASSESSMENT, SHE DESCRIBED HER MOOD "SELF CENTERED". SHE ALSO DENIED SI, HI, AND AVTH AT THAT TIME. SHE REMAINS DELUSIONAL AND TANGENTIAL. SHE ATTENDED SNACK AND DAY ROOM. SHE WAS COMPLIANT WITH CARE AND MEDICATION ADMINISTRATION. SHE RECEIVED THE FOLLOWING PRN MEDICATIONS: MIRALAX FOR CONSTIPTION AT 0218. SHE CONTINUES TO BE MONITORED EVERY 15 MINUTES FOR WELLNESS AND SAFETY.
--- NOTE | 2025-06-11 03:50 | NUR ---
PRN NOTE PATIENT RECEIVED THE FOLLOWING PRN MEDICATIONS DURING SKEIN YARN DYER: MIRALAX FOR CONSTIPTION AT 0218
--- NOTE | 2025-06-11 04:55 | NUR ---
Assumed care at 0400 from LISANDRA Almendarez. Patient has continued to sleep with brief periods of wakefulness through the night. When she wakes, she is usually up for approximately 5-10 minutes, then right back to bed. Will continue close observation every 15 minutes for safety and wellness per unit standard.
[2025-06-11 06:59] VITALS: BP 114/81
[2025-06-11] MEDS ORDERED: Polyethylene Glycol 3350 17 gm PO SCH (09:00)
[2025-06-11] MEDS ORDERED: ABILIFY MAINTE300 M1 IM (16:42)
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
--- NOTE | 2025-06-11 17:01 | NUR ---
MAHESH KNAPP, HALODOL, ATIVAN GIVEN FORR MASS SCORE OF 9. PT PACING, SPEECH IS BECOMING MORE DISORGANIZED, SHE IS GATHERING OBJECTS FROM ROOM AND BRINGING INTO HALLWAY. SHE IS UNABLE TO FOLLOW DIRECTIONS OR VERBALIZE WHAT SHE IS DOING. MEDICATION WORKED WELL. SHE HAS PUT OBJECTS BACK IN ROOM, IS ABLE TO FOLLOW SIMPLE DIRECTIONS, AND TOOK A SHOWER.
[2025-06-11 20:22] VITALS: BP 121/79
--- NOTE | 2025-06-12 05:15 | NUR ---
SHIFT SUMMARY Pt is A&O, calm, cooperative, appropriately dressed, eye contact appropriate. Pt stated that her mood was "okay," affect is blunted. Pt denies SI, HI, hallucinations, and current pain. Pt continues to display disorganized thoughts and tangential speech with some latency. She appears to be somewhat memory impaired. Pt stated that she had a BM today, but still would like to take her ordered PEG this evening. Pt was offered PRN medications and said she would take PRN Geodon before bed. She also received PRN melatonin at about 2205. Pt spent much of the evening pacing around the milieu. She was up to the nurse station several times during the night, but returned to her room within a few minutes. Staff continues to monitor q15m for safety and wellness.
[2025-06-12 07:04] VITALS: BP 121/78
--- NOTE | 2025-06-12 08:16 | NUR ---
PT ALERT AND COOOPERATIVE, COMPLIANT WITH MEDICATIONS. SHE APPEARS WELL GROOMED, HAS APPROPRIATE EYE CONTACT AND BLUNTED AFFECT. SHE DENIES SI, HI AND AVH. SHE DECLINED MIRALAX THIS AM, STATES "THAT WILL MAKE ME POOP MORE, I AM ALREADY POOPING". PT WALKING IN THE HALLS THIS AM TALKING WITH PEERS AND STAFF.
--- NOTE | 2025-06-12 08:33 | NUR ---
IMPORTANT DISCHARGE INFORMATION PATIENT TO BE DISCHARGED TODAY. HER SO "CHUCK" WILL BE PICKING HER UP AROUND 11AM. INSRUCTIONS WILL BE GIVEN TO SHAY AND CHUCK TO GO TO [facility] FOR FOLLOW UP CARE/PLAN FOR SHAY. SHAY'S NEW ADDRESS IS: [address] [facility] APARTMENT [id number]. [employer] HAS CONFIRMED, THIS IS HER APARTMENT, NOT [facility]. ALL PARTIES VERBALIZE AN UNDRSTANDING. NEXT ABILIFY 300MG IM TO BE GIVEN WEEK OF 07/08/25. [facility] IS AWARE FOLLOW UP APPOINTMENTS WITH [facility] [place]. [facility] REQUESTED FOLLOW UP WITH [facility]. PHARMACY: [facility] FAX #
--- NOTE | 2025-06-12 12:09 | NUR ---
DISCHARGE NOTE: PT DISCHARGED HOME. PROVIDED WITH DISCHARGE INSTRUCITONS AND DENIED QUESTIONS. PT BELONGINGS RETURNED BY LISANDRA RICHARDS. PT AMBULATED OUT OF THE DEPT WITH BELONGINGS AND DISCHARGE INSTRUCTIONS IN HAND. PT S/O HERE FOR RIDE HOME.
== END 2025-06-12 12:04 | disposition home or self-care (01) | DRG 776 ==
LOC: BHU 10:53
PROVIDERS: ADMIT Psychiatry & Neurology Psychiatry
DX: O99.345 Other mental disorders complicating the puerperium (principal); O99.325 Drug use complicating the puerperium; F23 Brief psychotic disorder; F25.9 Schizoaffective disorder, unspecified; F15.10 Other stimulant abuse, uncomplicated; R10.31 Right lower quadrant pain; R10.32 Left lower quadrant pain; K21.9 Gastro-esophageal reflux disease without esophagitis; O90.89 Other complications of the puerperium, not elsewhere classified; Z91.148 Patient's other noncompliance with medication regimen for other reason; Z88.8 Allergy status to other drugs, medicaments and biological substances; Z88.0 Allergy status to penicillin; Z88.1 Allergy status to other antibiotic agents; Z79.899 Other long term (current) drug therapy; Z79.1 Long term (current) use of non-steroidal anti-inflammatories (NSAID); Z87.891 Personal history of nicotine dependence; Z28.21 Immunization not carried out because of patient refusal
CPT/HCPCS: 74177; 84702; 96372; A9270; J0401; Q9967